=== PATIENT | male | born 1975 | race Caucasian/White ===

== ENCOUNTER 2017-03-07 04:31 | Emergency (ER) | payer SELFPAY ==
[2017-03-07 05:07] LABS: Basophils % (Auto) 0.9 % (0.0-1.8); Eosinophils % (Auto) 2.9 % (0.0-4.3); Hematocrit 35.1 % (35.5-45.6); Hemoglobin 11.6 gm/dl (11.8-15.2); Mean Corpuscular HGB Conc 33 % (32-34); Mean Corpuscular Volume 77 fl (84-94); Platelet Count 402 K/mm3 (140-440); Red Blood Count 4.55 M/mm3 (3.65-5.03); Red Cell Distribution Width 15.9 % (13.2-15.2); White Blood Count 6.1 K/mm3 (4.5-11.0)
[2017-03-07 05:13] LABS: Mean Corpuscular Hemoglobin 25 pg (28-32)
[2017-03-07 05:28] LABS: Anion Gap 19 mmol/L; BUN/Creatinine Ratio 11.11; Blood Urea Nitrogen 10 mg/dL (9-20); Calcium 8.9 mg/dL (8.4-10.2); Carbon Dioxide 24 mmol/L (22-30); Chloride 98.3 mmol/L (98-107); Glucose 110 mg/dL (75-100); Potassium 3.8 mmol/L (3.6-5.0); Sodium 137 mmol/L (137-145)
--- NOTE | 2017-03-07 10:00 | XRay Report ---
XRAY CHEST TWO VIEWS: 03/07/17 04:31:00 CLINICAL: Nonproductive cough. COMPARISON: None FINDINGS: Normal heart and pulmonary vasculature. The lungs are normally expanded and clear.Degenerative changes in the spine. IMPRESSION: No acute cardiopulmonary process.
--- NOTE | 2017-03-07 10:11 | Emergency Department Report ---
ED Rash HPI - HPI Chief Complaint: Upper Respiratory Infection Stated Complaint: DIFFULTY IN [facility], VIRAL INFECTION Time Seen by Provider: 03/07/17 09:20 Rash Symptoms: No Itching, No Facial Swelling, No Tongue/Oral Swelling, No Choking Sensation, No Wheezing/Dyspnea, No Peeling, No Blistering, No Fever, No Lightheaded, No Malaise, No Myalgias Severity: mild Other History: 41-year-old male presents with complaint of 2 weeks of slight rash to upper back up on his chest and abdomen and complaint of approximately 3- 4 days of intermittent sore throat. Patient also states that he has oral lesion on upper lip which is oral herpes which she has had several times in the past. Patient also states that he has had some body aches and swollen glands intermittently for possibly 2 months. Patient is requesting STD testing as he is concerned that he may have an STD. Patient also states he has had nonproductive cough for approximately 2 weeks. ED Review of Systems ROS: Stated complaint: [facility], VIRAL INFECTION Other details as noted in HPI Constitutional: denies: chills, fever Eyes: denies: eye pain, eye discharge, vision change ENT: as per HPI. 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 No distress. Alert and acting appropriately. HEENT: No Periorbital Edema, No Conjuctival Injection, No Chemosis, No Perioral Edema, No Tongue Edema, No Uvular Edema, No Compromised Airway, No Drooling Lungs: Yes Good Air Exchange (Normal Breath Sounds), No Wheezes, No Ronchi, No Stridor, No Cough, No Labored Respirations, No Retractions, No Use of Accessory Muscles, No Other Abnormal Lung Sounds Heart: Yes Regular, No Murmur Skin: Yes Maculopapular Rash (maculopapular rash on upper extremities chest and upper back. No involvement of palms or soles.), No Urticarial Rash, No Morbilliform rash, No Bulla(e), No Excoriations, No Weeping, No Tenderness, No Erythema, No Edema, No Encrustations, No Other Other: Positive: Abdomen Normal, Neurologic Normal, Musculoskeletal Normal ED Course Vital Signs 03/07/17 04:37 Temperature 98.2 F Pulse Rate 102 H Respiratory 18 Rate Blood Pressure 132/90 O2 Sat by Pulse 99 Oximetry ED Medical Decision Making - Lab Data Result diagrams: 03/07/17 04:50 03/07/17 04:50 - Medical Decision Making A/P: Nonspecific rash, oral herpes, sore throat 1-empiric treatment with acyclovir. Motrin PRN, throat lozenges 2-patient referred to health departments of [facility], [place], infectious disease clinics, [email or web address] primary care and health department, STI/STD health/testing center [email or web address]. I emphasized to patient that he should seek primary care follow-up and infectious disease follow-up and he stated he understood and will do so 3-advised patient to return to the ED for fevers chills nausea vomiting, headahce, chest pain, SOB. 4- case discussed with Dr. Deras before discharge 5- I advised patient to practice safe sex until he is tested for HIV hepatitis and other STDs in an outpatient setting. Patient is hemodynamically stable no cranial nerve deficits on clinical exam, vital signs within normal limits. Critical care attestation.: If time is entered above; I have spent that time in minutes in the direct care of this critically ill patient, excluding procedure time. ED Disposition Clinical Impression: Oral herpes, Rash and nonspecific skin eruption Disposition: TO HOME OR SELFCARE Is pt being admited?: No Does the pt Need Aspirin: No Condition: Stable Instructions: Safe Sex (ED), Oral Herpes Simplex Virus Infections (ED), Acute Rash (ED) Additional Instructions: [email or web address] Prescriptions: Acyclovir [Zovirax Cap] 200 mg PO 5XD #25 cap Benzocaine/Menthol [Cepacol Sore Throat Lozenge] 1 each MM Q4H PRN #1 box PRN Reason: Sore Throat Naproxen [Naprosyn TAB] 500 mg PO BID PRN #20 tablet PRN Reason: Pain Referrals: [facility] Depart [Outside] - 3-5 Days [facility] [Outside] - 3-5 Days FRANK NEWBY MD [Staff Physician] - 3-5 Days THU MONROE MD [Staff Physician] - 3-5 Days SIM MARK MD [Staff Physician] - 3-5 Days Forms: Work/School Release Form(ED) Time of Disposition: 10:10
[2017-03-07 10:23] VITALS: BP 112/55
== END 2017-03-07 11:00 | disposition home or self-care (01) ==
LOC: ED 04:31
DX: B00.9 Herpesviral infection, unspecified (principal); Z87.891 Personal history of nicotine dependence
CPT/HCPCS: 36415; 71020; 80048; 85025; 99283

== ENCOUNTER 2017-08-07 05:53 | Inpatient (IN) | payer OTHER ==
[2017-08-07] MEDS ORDERED: NACL 0.9% 1000 ML 1,000 ML IV ONE (06:13)
[2017-08-07] MEDS ORDERED: BABY ASPIRIN PO ONE (06:13)
[2017-08-07] MEDS ORDERED: HEPARIN 10,000 UNITS/10 ML IV ONE (06:25)
--- NOTE | 2017-08-07 06:27 | Emergency Department Report ---
ED Chest Pain HPI - General Stated Complaint: CHEST PAIN AND HANDS TINGLING Source: patient Mode of arrival: Ambulatory Limitations: No Limitations - History of Present Illness Initial Comments: 42-year-old male with no significant past medical history presents to the hospital with complaints of chest pain that started about 2 AM. Pain is located in the center of his chest, described as heartburn, moderate in intensity, associated with shortness of breath and sweating throughout the night. Pain has been waxing and waning and returned after arrival to the ED in ambulation to his car. Patient has been smoking cigarettes one to 2 times a day for last couple months. Positive family history of CAD. Denies personal cardiac or past medical history. - Related Data Previous Rx's Medication Instructions Recorded Last Taken Type Acyclovir [Zovirax Cap] 200 mg PO 5XD #25 cap 03/07/17 Unknown Rx Benzocaine/Menthol [Cepacol Sore 1 each MM Q4H PRN #1 box 03/07/17 Unknown Rx Throat Lozenge] Naproxen [Naprosyn TAB] 500 mg PO BID PRN #20 tablet 03/07/17 Unknown Rx Allergies Allergy/AdvReac Type Severity Reaction Status Date / Time No Known Allergies Allergy Verified 03/07/17 04:37 Heart Score - HEART Score History: Highly suspicious EKG: Significant ST-depression Age: < 45 Risk factors: 1-2 risk factors Troponin: < normal limit HEART Score: 5 ED Review of Systems ROS: Stated complaint: CHEST PAIN AND HANDS TINGLING Other details as noted in HPI Comment: All other systems reviewed and negative Other: Constitutional: No fevers chills or weight loss Eyes: No eye pain visual changes or discharge ENT: No ear pain or throat pain Neck: Denies pain Respiratory: Denies cough wheezing Cardiovascular: Denies chest pain, GI: Denies abdominal pain, nausea, vomiting, diarrhea : Denies dysuria Musculoskeletal: Denies back pain, joint swelling Skin: Denies rash, lesions, erythema Neurologic: Denies headache, numbness, weakness Psychiatric: Denies suicidal ideation, hallucinations ED Past Medical Hx - Past Medical History 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 - Social History Smoking Status: Former Smoker Substance Use Type: None - Medications Home Medications: Home Medications Medication Instructions Recorded Confirmed Last Taken Type Acyclovir [Zovirax Cap] 200 mg PO 5XD #25 cap 03/07/17 Unknown Rx Benzocaine/Menthol [Cepacol Sore 1 each MM Q4H PRN #1 box 03/07/17 Unknown Rx Throat Lozenge] Naproxen [Naprosyn TAB] 500 mg PO BID PRN #20 tablet 03/07/17 Unknown Rx ED Physical Exam - Other Other exam information: General: No limitations, patient is alert in no acute distress Head exam: Atraumatic, normocephalic Eyes exam: Normal appearance ENT: Moist mucous membrane, normal oropharynx Neck exam: Normal inspection, full range of motion, no meningismus nontender Respiratory exam: Clear to auscultation bilateral, no wheezes, rales, crackles Cardiovascular: Normal rate and rhythm, normal heart sounds, chest wall nontender Abdomen: Soft, nondistended, and nontender, with normal bowel sounds, no rebound, or guarding Extremity: Full range of motion normal inspection no deformity, no calf tenderness or edema Back: Normal Inspection, full range of motion, no tenderness Neurologic: Alert, oriented x3, cranial nerves intact, no motor or sensory deficit Psychiatric: normal affect, normal mood Skin: Warm, dry, intact ED Course Vital Signs 08/07/17 08/07/17 06:23 06:34 Temperature 97.9 F Pulse Rate 93 H 94 H Respiratory 18 Rate O2 Sat by Pulse 99 Oximetry - Consultations Consultation #1: 08/07/17 06:10 Case discussed with on-call medical collections specialist Dr. Gen Romero. On the way to hospital. technology lab teacher has been activated DESTINY score - Destiny Score Age > 65: (0) No Aspirin use within the Past 7 Days: (0) No 3 or more CAD Risk Factors: (0) No 2 or more Angina events in past 24 hrs: (0) No Known CAD with more than 50% Stenosis: (0) No Elevated Cardiac Markers: (0) No ST Deviation Greater than 0.5mm: (1) Yes DESTINY Score: 1 ED Medical Decision Making - Lab Data Result diagrams: 08/07/17 06:17 08/07/17 08:53 Lab Results 08/07/17 08/07/17 08/07/17 Range/Units 06:17 06:17 06:17 WBC 8.7 (4.5-11.0) K/mm3 RBC 4.13 (3.65-5.03) M/mm3 Hgb 9.5 L (11.8-15.2) gm/dl Hct 30.1 L (35.5-45.6) % MCV 73 L (84-94) fl MCH 23 L (28-32) pg MCHC 31 L (32-34) % RDW 19.4 H (13.2-15.2) % Plt Count 417 (140-440) K/mm3 Lymph % (Auto) 22.6 (13.4-35.0) % [place] % (Auto) 6.5 (0.0-7.3) % Eos % (Auto) 2.7 (0.0-4.3) % Baso % (Auto) 0.6 (0.0-1.8) % Lymph # 2.0 (1.2-5.4) K/mm3 [place] # 0.6 (0.0-0.8) K/mm3 Eos # 0.2 (0.0-0.4) K/mm3 Baso # 0.1 (0.0-0.1) K/mm3 Seg Neutrophils % 67.6 (40.0-70.0) % Seg Neutrophils # 5.9 (1.8-7.7) K/mm3 PT 11.8 L (12.2-14.9) Sec. INR 0.83 L (0.87-1.13) APTT 27.1 (24.2-36.6) Sec. Activated Clotting Time (74-137) Sodium (137-145) mmol/L Potassium (3.6-5.0) mmol/L Chloride (98-107) mmol/L Carbon Dioxide (22-30) mmol/L Anion Gap mmol/L BUN (9-20) mg/dL Creatinine (0.8-1.5) mg/dL Estimated GFR ml/min BUN/Creatinine Ratio % Glucose (75-100) mg/dL Calcium (8.4-10.2) mg/dL Total Bilirubin (0.1-1.2) mg/dL AST (5-40) units/L ALT (7-56) units/L Alkaline Phosphatase (35-129) units/L Total Creatine Kinase 467 H (55-170) units/L CK-MB (CK-2) 4.1 H (0.0-4.0) ng/mL CK-MB (CK-2) Rel Index 0.8 (0-4) Troponin T < 0.010 (0.00-0.029) ng/mL Total Protein (6.3-8.2) g/dL Albumin (3.9-5) g/dL Albumin/Globulin Ratio % Blood Type Antibody Screen 08/07/17 08/07/17 08/07/17 Range/Units 06:17 06:17 07:16 WBC (4.5-11.0) K/mm3 RBC (3.65-5.03) M/mm3 Hgb (11.8-15.2) gm/dl Hct (35.5-45.6) % MCV (84-94) fl MCH (28-32) pg MCHC (32-34) % RDW (13.2-15.2) % Plt Count (140-440) K/mm3 Lymph % (Auto) (13.4-35.0) % [place] % (Auto) (0.0-7.3) % Eos % (Auto) (0.0-4.3) % Baso % (Auto) (0.0-1.8) % Lymph # (1.2-5.4) K/mm3 [place] # (0.0-0.8) K/mm3 Eos # (0.0-0.4) K/mm3 Baso # (0.0-0.1) K/mm3 Seg Neutrophils % (40.0-70.0) % Seg Neutrophils # (1.8-7.7) K/mm3 PT (12.2-14.9) Sec. INR (0.87-1.13) APTT (24.2-36.6) Sec. Activated Clotting Time 142 H (74-137) Sodium 136 L (137-145) mmol/L Potassium 4.5 (3.6-5.0) mmol/L Chloride 98.4 (98-107) mmol/L Carbon Dioxide 23 (22-30) mmol/L Anion Gap 19 mmol/L BUN 12 (9-20) mg/dL Creatinine 1.0 (0.8-1.5) mg/dL Estimated GFR > 60 ml/min BUN/Creatinine Ratio 12 % Glucose 110 H (75-100) mg/dL Calcium 8.9 (8.4-10.2) mg/dL Total Bilirubin 0.40 (0.1-1.2) mg/dL AST 26 (5-40) units/L ALT 22 (7-56) units/L Alkaline Phosphatase 98 (35-129) units/L Total Creatine Kinase (55-170) units/L CK-MB (CK-2) (0.0-4.0) ng/mL CK-MB (CK-2) Rel Index (0-4) Troponin T (0.00-0.029) ng/mL Total Protein 7.6 (6.3-8.2) g/dL Albumin 4.1 (3.9-5) g/dL Albumin/Globulin Ratio 1.2 % Blood Type O POSITIVE Antibody Screen Negative - EKG Data -: EKG Interpreted by Me EKG shows normal: sinus rhythm, axis (69), QRS complexes (68), ST-T waves (inf stemi, lat st elevation) Rate: normal - EKG Data When compared to previous EKG there are: previous EKG unavailable - Radiology Data Radiology results: report reviewed (cxr: naf) - Medical Decision Making ST elevation IA Aspirin given Heparin bolus with drip initiated morphine Zofran when necessary pain and nausea Patient transferred to liaison inspection laboratory assistant and to be admitted by hospitalist Dr Hicks hospitalist informed at 7:08 for admission - Differential Diagnosis IA, unstable angina, PE, dissection, atypical chest, GERD Critical Care Time: Yes Critical care time in (mins) excluding proc time.: 15 Critical care attestation.: If time is entered above; I have spent that time in minutes in the direct care of this critically ill patient, excluding procedure time. ED Disposition Clinical Impression: STEMI (ST elevation myocardial infarction) Disposition: DC-09 OP ADMIT IP TO THIS HOSP Is pt being admited?: Yes Condition: Stable Time of Disposition: 06:29 (Dr Gen Romero/melissa)
[2017-08-07 06:30] LABS: Basophils # (Auto) 0.1 K/mm3 (0.0-0.1); Basophils % (Auto) 0.6 % (0.0-1.8); Eosinophils # (Auto) 0.2 K/mm3 (0.0-0.4); Eosinophils % (Auto) 2.7 % (0.0-4.3); Hematocrit 30.1 % (35.5-45.6); Hemoglobin 9.5 gm/dl (11.8-15.2); Lymphocytes % (Auto) 22.6 % (13.4-35.0); Mean Corpuscular HGB Conc 31 % (32-34); Mean Corpuscular Volume 73 fl (84-94); Monocytes # (Auto) 0.6 K/mm3 (0.0-0.8); Monocytes % (Auto) 6.5 % (0.0-7.3); Platelet Count 417 K/mm3 (140-440); Red Blood Count 4.13 M/mm3 (3.65-5.03); Red Cell Distribution Width 19.4 % (13.2-15.2)
[2017-08-07] MEDS ORDERED: ZOFRAN IV PRN (06:36)
[2017-08-07] MEDS ORDERED: MORPHINE IV PRN (06:36)
[2017-08-07 06:42] LABS: Mean Corpuscular Hemoglobin 23 pg (28-32)
--- NOTE | 2017-08-07 06:46 | XRay Report ---
FINAL REPORT PROCEDURE: XR CHEST 1V AP TECHNIQUE: Chest radiograph anteroposterior view. CPT 44834 HISTORY: chest pain COMPARISON: No prior studies are available for comparison. FINDINGS: Heart: Normal. Mediastinum/Vessels: Normal. Lungs/Pleural space: There is suboptimal inspiration. There are no infiltrates, effusions or pneumothoraces.. Bony thorax: No acute osseous abnormality. Life support devices: None. IMPRESSION: Normal heart and lungs..
[2017-08-07 06:47] LABS: Creatine Kinase MB 4.1 ng/mL (0.0-4.0); INR 0.83 (0.87-1.13)
[2017-08-07 06:48] LABS: Partial Thromboplastin Time 27.1 Sec. (24.2-36.6)
[2017-08-07 06:49] LABS: Alanine Aminotransferase 22 units/L (7-56); Albumin 4.1 g/dL (3.9-5); BUN/Creatinine Ratio 12; Blood Urea Nitrogen 12 mg/dL (9-20); Calcium 8.9 mg/dL (8.4-10.2); Hemolysis Index 7
[2017-08-07] MEDS ORDERED: HEPARIN/NS 5000 UNIT/500ML(CATH LAB) 0 ML IR ONE (06:49)
[2017-08-07] MEDS ORDERED: VERSED ONE (06:50)
[2017-08-07] MEDS ORDERED: XYLOCAINE 2% INFILTRATI ONE ×2 (06:50→06:58)
[2017-08-07] MEDS ORDERED: SUBLIMAZE ONE (06:52)
[2017-08-07] MEDS ORDERED: HEPARIN 10,000 UNITS/10 ML ONE ×2 (06:57→07:37)
[2017-08-07] MEDS ORDERED: HEPARIN/NS 5000 UNIT/500ML(CATH LAB) 1,000 ML IR ONE (06:57)
[2017-08-07] MEDS ORDERED: NITROGLYCERIN SYRINGE 3 ML ONE (06:58)
[2017-08-07] MEDS ORDERED: HEPARIN/ 0.45% NACL-25,000 UNIT/500 ML 25,000 UNIT/500 ML BAG IV SCH (07:00)
--- NOTE | 2017-08-07 07:20 | History and Physical Report ---
History of Present Illness Date of examination: 08/07/17 Date of admission: 08/07/17 Chief complaint: Left-sided chest pain History of present illness: 42-year-old male patientwith significant past medical history presented to the emergency room with left-sided chest pain since last night. Chest pain pleuritic squeezing type symptoms and heartburn greatest between 6-7/ 10 associated with shortness of breath and diaphoresis Patient has history of chronic tobacco use and family history significant for coronary artery disease Past History Past Surgical History: No surgical history Social history: smoking ( ex-smoker) Family history: CAD, hypertension Medications and Allergies Allergies Allergy/AdvReac Type Severity Reaction Status Date / Time No Known Allergies Allergy Verified 03/07/17 04:37 Home Medications Medication Instructions Recorded Confirmed Last Taken Type Acyclovir [Zovirax Cap] 200 mg PO 5XD #25 cap 03/07/17 Unknown Rx Benzocaine/Menthol [Cepacol Sore 1 each MM Q4H PRN #1 box 03/07/17 Unknown Rx Throat Lozenge] Naproxen [Naprosyn TAB] 500 mg PO BID PRN #20 tablet 03/07/17 Unknown Rx Active Meds: Active Medications Sodium Chloride (Nacl 0.9% 1000 Ml) 1,000 mls @ 42 mls/hr IV ONCE ONE Stop: 08/08/17 06:01 Last Admin: 08/07/17 06:33 Dose: 42 mls/hr Heparin Sodium/Sodium Chloride (Heparin/ 0.45% Nacl-25,000 Unit/500 Ml) 25,000 unit in 500 mls @ 18 mls/hr IV TITRATE LOURDES; Protocol Last Admin: 08/07/17 06:34 Dose: 900 units/hr, 18 mls/hr Morphine Sulfate (Morphine) 4 mg IV Q4H PRN PRN Reason: Pain, Moderate (4-6) Ondansetron HCl (Zofran) 4 mg IV PRN PRN PRN Reason: Nausea Review of Systems Constitutional: no weight loss, no weight gain, no anorexia, no fatigue Ears, nose, mouth and throat: no nasal congestion, no nasal discharge Cardiovascular: chest pain, shortness of breath, no orthopnea, no palpitations, no rapid/irregular heart beat Respiratory: no excessive sputum, no hemoptysis Gastrointestinal: nausea, no vomiting, no diarrhea Genitourinary Male: no dysuria, no hematuria Musculoskeletal: no myalgias, no arthritis Integumentary: rash, lesions Neurological: no weakness, no parathesias Psychiatric: no anxiety, no depression Endocrine: no cold intolerance, no heat intolerance, no polydipsia, no polyuria Hematologic/Lymphatic: no easy bruising, no easy bleeding Allergic/Immunologic: no urticaria, no allergic rhinitis Exam - Constitutional Vitals: Temp Pulse Resp BP Pulse Ox 97.9 F 94 H 18 99 08/07/17 06:23 08/07/17 06:34 08/07/17 06:23 08/07/17 06:23 General appearance: Present: no acute distress, well-nourished - EENT Eyes: Present: PERRL, EOM intact - Neck Neck: Present: supple, normal ROM - Respiratory Respiratory effort: normal Respiratory: bilateral: diminished, negative: rales, rhonchi, wheezing - Cardiovascular Rhythm: regular Heart Sounds: Present: S1 & S2 - Extremities Extremities: no ischemia, No edema - Abdominal General gastrointestinal: Present: soft, non-tender, non-distended, normal bowel sounds - Integumentary Integumentary: Present: clear, warm - Musculoskeletal Musculoskeletal: strength equal bilaterally, generalized weakness - Psychiatric Psychiatric: appropriate mood/affect, cooperative - Neurologic Neurologic: CNII-XII intact, moves all extremities Results - Labs CBC & Chem 7: 08/08/17 03:48 08/08/17 03:48 Labs: Abnormal lab results 08/07/17 08/07/17 08/07/17 Range/Units 06:17 06:17 06:17 Hgb 9.5 L (11.8-15.2) gm/dl Hct 30.1 L (35.5-45.6) % MCV 73 L (84-94) fl MCH 23 L (28-32) pg MCHC 31 L (32-34) % RDW 19.4 H (13.2-15.2) % PT 11.8 L (12.2-14.9) Sec. INR 0.83 L (0.87-1.13) Sodium (137-145) mmol/L Glucose (75-100) mg/dL Total Creatine Kinase 467 H (55-170) units/L CK-MB (CK-2) 4.1 H (0.0-4.0) ng/mL 08/07/17 Range/Units 06:17 Hgb (11.8-15.2) gm/dl Hct (35.5-45.6) % MCV (84-94) fl MCH (28-32) pg MCHC (32-34) % RDW (13.2-15.2) % PT (12.2-14.9) Sec. INR (0.87-1.13) Sodium 136 L (137-145) mmol/L Glucose 110 H (75-100) mg/dL Total Creatine Kinase (55-170) units/L CK-MB (CK-2) (0.0-4.0) ng/mL Assessment and Plan --Acute ST elevation [place]; cardiology evaluated the patient stat heart cath performed, underwent PCI of proximal circumflex with bare metal stent on aspirin and Plavix admitted to ICU --Hematuria; unknown etiology, IV fluids, monitor H&H and transfuse as needed If no improvement consult urology . --Anemia; we'll check iron profile, closely monitor H&H and transfuse as needed --Mild hyponatremia; closely monitor sodium levels replacement therapy as needed , --Family history of premature coronary artery disease, --DVT prophylaxis; patient is on heparin drip Closely monitor the patient and adjust management as needed Cardiology evaluation and recommendations, noted and appreciated Cardiac Rehabilitation upon discharge Plan of care discussed with the patient, multiple family members at the bedside All questions answered. Critical care time 35 minutes -
[2017-08-07] MEDS ORDERED: PLAVIX ONE (07:25)
[2017-08-07] MEDS ORDERED: ALUM-MAG HYDROX-SIMETH 200-200-20MG/5ML ONE (07:46)
--- NOTE | 2017-08-07 07:49 | Consultation ---
History of Present Illness Consult date: 08/07/17 Consult reason: cardiac arrest, chest pain History of present illness: 42-year-old male with no significant past medical history presents to the Hospital with complaints of chest pain that started about 2 AM. Reports pain in the center of the chest, described as heartburn, moderate in intensity, associated with shortness of breath and sweating throughout the night. Pain has been waxing and waning and returned after arrival to the ED in ambulation to his car. Patient has been smoking cigarettes one to 2 times a day for last couple months. Positive family history of CAD. Denies personal cardiac or past medical history. Patient is a history of leukemia apparently which is under remission. However for the past few days to weeks he's been having significant hematuria. Pupils at this chest pain has been on and off for the past few days Patient was noted to have acute inferior ST elevation [place]. He was taken emergently to the cardiac cath rn and was noted to have thrombotic significant stenosis of the circumflex artery. He underwent successful percutaneous intervention with a bare metal stent. Patient is being admitted post PCI. Past History Past Medical History: other (leukemia, hematuria) Social history: smoking Family history: CAD (all his family members have had significant coronary artery disease) Medications and Allergies Allergies Allergy/AdvReac Type Severity Reaction Status Date / Time No Known Allergies Allergy Verified 03/07/17 04:37 Home Medications Medication Instructions Recorded Confirmed Last Taken Type Acyclovir [Zovirax Cap] 200 mg PO 5XD #25 cap 03/07/17 Unknown Rx Benzocaine/Menthol [Cepacol Sore 1 each MM Q4H PRN #1 box 03/07/17 Unknown Rx Throat Lozenge] Naproxen [Naprosyn TAB] 500 mg PO BID PRN #20 tablet 03/07/17 Unknown Rx Active Meds: Active Medications Alprazolam (Xanax) 0.25 mg PO Q8H PRN PRN Reason: Anxiety Aspirin (Ecotrin) 325 mg PO QDAY LOURDES Atorvastatin Calcium (Lipitor) 80 mg PO QHS LOURDES Carvedilol (Coreg) 3.125 mg PO BID LOURDES Clopidogrel Bisulfate (Plavix) 75 mg PO QDAY LOURDES Famotidine (Pepcid) 20 mg IV BID LOURDES Sodium Chloride (Nacl 0.9% 1000 Ml) 1,000 mls @ 42 mls/hr IV ONCE ONE Stop: 08/08/17 06:01 Last Admin: 08/07/17 06:33 Dose: 42 mls/hr Heparin Sodium/Sodium Chloride (Heparin/ 0.45% Nacl-25,000 Unit/500 Ml) 25,000 unit in 500 mls @ 18 mls/hr IV TITRATE LOURDES; Protocol Last Admin: 08/07/17 06:34 Dose: 900 units/hr, 18 mls/hr Sodium Chloride (Nacl 0.9% 1000 Ml) 1,000 mls @ 125 mls/hr IV DIRECT LOURDES Morphine Sulfate (Morphine) 4 mg IV Q4H PRN PRN Reason: Pain, Moderate (4-6) Morphine Sulfate (Morphine) 2 mg IV Q4H PRN PRN Reason: Pain, Moderate (4-6) Ondansetron HCl (Zofran) 4 mg IV PRN PRN PRN Reason: Nausea Pantoprazole Sodium (Protonix) 40 mg PO QDAY LOURDES Review of Systems All systems: negative (as mentioned above.) Physical Examination Vital Signs Temp Pulse Resp Pulse Ox 97.9 F 93 H 18 99 08/07/17 06:23 08/07/17 06:23 08/07/17 06:23 08/07/17 06:23 Narrative exam: Physical examination Vitals reviewed GEN: No acute distress noted HEENT: Carotids 2+ NECK: Supple CVS: S1 and S2 heard no significant murmur or gallop noted LUNGS/CHEST: Normal auscultation ABD: Soft nontender Extremities: No edema noted normal color NEURO: Alert moves all all 4 extremities PSY: Stable Results 08/07/17 06:17 08/07/17 06:17 Cardiac Enzymes 08/07/17 08/07/17 Range/Units 06:17 06:17 AST 26 (5-40) units/L CK-MB (CK-2) 4.1 H (0.0-4.0) ng/mL Coagulation 08/07/17 Range/Units 06:17 PT 11.8 L (12.2-14.9) Sec. INR 0.83 L (0.87-1.13) APTT 27.1 (24.2-36.6) Sec. CBC 08/07/17 Range/Units 06:17 WBC 8.7 (4.5-11.0) K/mm3 RBC 4.13 (3.65-5.03) M/mm3 Hgb 9.5 L (11.8-15.2) gm/dl Hct 30.1 L (35.5-45.6) % Plt Count 417 (140-440) K/mm3 Lymph # 2.0 (1.2-5.4) K/mm3 [place] # 0.6 (0.0-0.8) K/mm3 Eos # 0.2 (0.0-0.4) K/mm3 Baso # 0.1 (0.0-0.1) K/mm3 Comprehensive Metabolic Panel 08/07/17 Range/Units 06:17 Sodium 136 L (137-145) mmol/L Potassium 4.5 (3.6-5.0) mmol/L Chloride 98.4 (98-107) mmol/L Carbon Dioxide 23 (22-30) mmol/L BUN 12 (9-20) mg/dL Creatinine 1.0 (0.8-1.5) mg/dL Glucose 110 H (75-100) mg/dL Calcium 8.9 (8.4-10.2) mg/dL AST 26 (5-40) units/L ALT 22 (7-56) units/L Alkaline Phosphatase 98 (35-129) units/L Total Protein 7.6 (6.3-8.2) g/dL Albumin 4.1 (3.9-5) g/dL EKG interpretations - Telemetry EKG Rhythm: Sinus Rhythm (acute inferior ST elevation DC with reciprocal anterior changes) Assessment and Plan Impression 1. Acute inferior ST elevation DC 2. Successful pocket it is intervention of the circumflex artery in the setting of an acute inferior ST elevation DC 3. Hematuria 4. Anemia 5. History of leukemia in remission 6. Questionable rashes over the past few days 7. History of tobacco abuse 8. Family history of premature cardiac artery disease Plan Dictated therapy for 4 weeks preferably more Routine underwent pharmacotherapy post PCI including beta blockers and high intensity statins Hematuria and anemia workup Cardiac rehabilitation as an outpatient
[2017-08-07] MEDS ORDERED: NACL 0.9% 1000 ML 1,000 ML IV SCH (08:00)
--- NOTE | 2017-08-07 08:20 | Cardiac Catherization Report ---
PROCEDURE PERFORMED: 1. Selective left and right coronary angiogram. 2. Successful percutaneous intervention of the proximal circumflex. 3. Limited right femoral angiogram. 4. Successful deployment of Angio-Seal vascular closure device. COPIER TECHNICIAN: Alessandro Romero M.D. INDICATION: Acute inferior ST elevation [place]. PROCEDURE IN DETAIL: 1. The patient was prepped and draped in a sterile fashion after informed consent. 2. The right groin was anesthetized using local Lidocaine infiltration. 3. The right femoral artery was entered using the Seldinger technique, followed by the placement of a 6-Danish sheath. 4. Selective left and right coronary angiography was performed using 6-Danish Shelbie catheters. Angiograms were done in multiple projections. 5. Selective left ventricular angiography was done using a 6-Danish pigtail catheter. Left ventricular angiography was performed in the right anterior oblique projection. 6. The catheters were withdrawn, the sheath removed, and hemostasis was achieved. 7. The patient was transferred to the post cardiac catheterization unit in stable condition. There were no complications, equipment malfunction, or technical difficulties. FINDINGS: 1. Hemodynamics: AO 141/97, LV 141/29, LVEDP is 29. 2. Left ventriculogram was suboptimal appears to be mildly reduced LV systolic function, EF 40-45%. ANGIOGRAM DETAILS: 1. Left main is angiographically normal. 2. LAD is a medium caliber vessel. There is a 50-60% mid stenosis. The diagonal 1 is diffusely diseased. 3. The circumflex is a codominant large caliber vessel. Thrombotic 80% stenosis is noted proximally. 4. The RCA is a small to medium caliber codominant vessel, diffuse stenosis noted with no significant obstructive lesion. IMPRESSION: 1. Critical coronary artery disease including 80% thrombotic occlusion of the proximal circumflex. 2. Moderate diffuse disease of the LAD and the RCA. 3. Borderline LV systolic function, EF 40-45%. PLAN: Proceed with PCI of the circumflex. PERCUTANEOUS INTERVENTION DETAILS: Intravenous heparin was used to maintain therapeutic ACT. An XB 3.5 guide catheter was used to engage the left main coronary artery. A BMW wire was used as a standard guidewire. After initial predilatation, a 3.0 X 15 mm bare metal stent was deployed across the stenosis with excellent results. There was complete resolution of thrombotic stenosis with DESTINY 3 flow. The patient was chest pain free. Angiogram repeated and no dissection, no thrombosis or residual stenosis noted. The guide was removed over the wire. Limited right femoral angiogram showed sheath above bifurcation and an Angio-Seal was used for vascular closure. Complete hemostasis was obtained. The patient was given 600 mg of Plavix. IMPRESSION: 1. Status post successful percutaneous intervention of the thrombotic circumflex with the deployment of a 3.0 X 15 bare metal stent. 2. A bare metal stent was deployed as the patient has been having hematuria, was noted to be anemic and has a history of leukemia. This will limit his dual antiplatelet therapy for only 4 weeks. PLAN: 1. Dual antiplatelet therapy for 4 weeks, preferably more. 2. Routine adjuvant pharmacotherapy post PCI/FL. 3. Routine Angio-Seal groin care. 4. Cardiac rehabilitation as an outpatient. JOB# [id number] RR/NTS
[2017-08-07 09:25] LABS: Creatine Kinase MB 13.9 ng/mL (0.0-4.0)
[2017-08-07 09:26] LABS: Chol/HDL Ratio 2.36 %
[2017-08-07] MEDS: MORPHINE IV PRN ×2 (09:26→22:53)
[2017-08-07 09:59] LABS: BUN/Creatinine Ratio 12; Blood Urea Nitrogen 11 mg/dL (9-20); Calcium 8.4 mg/dL (8.4-10.2); Hemolysis Index 2
[2017-08-07] MEDS ORDERED: PEPCID IV SCH (10:00)
[2017-08-07] MEDS: COREG PO SCH ×2 (12:16→22:11)
[2017-08-07] MEDS: ECOTRIN PO SCH (12:16)
[2017-08-07] MEDS: PROTONIX PO SCH (12:17)
[2017-08-07] MEDS: XANAX PO PRN (12:17)
[2017-08-07 13:56] LABS: Creatine Kinase MB 55.5 ng/mL (0.0-4.0)
[2017-08-07] MEDS ORDERED: Fluarix Quad 2017-2018(36 MOS+ IM ONE (17:15)
[2017-08-07] MEDS ORDERED: AMBIEN PO PRN (17:26)
[2017-08-08 04:14] LABS: Basophils # (Auto) 0.1 K/mm3 (0.0-0.1); Basophils % (Auto) 0.8 % (0.0-1.8); Eosinophils # (Auto) 0.2 K/mm3 (0.0-0.4); Eosinophils % (Auto) 2.7 % (0.0-4.3); Hemoglobin 8.6 gm/dl (11.8-15.2); Lymphocytes # (Auto) 1.5 K/mm3 (1.2-5.4); Mean Corpuscular HGB Conc 32 % (32-34); Mean Corpuscular Volume 72 fl (84-94); Monocytes # (Auto) 0.5 K/mm3 (0.0-0.8); Monocytes % (Auto) 7.3 % (0.0-7.3); Platelet Count 363 K/mm3 (140-440); Red Blood Count 3.75 M/mm3 (3.65-5.03); Red Cell Distribution Width 19.3 % (13.2-15.2)
[2017-08-08 04:37] LABS: Creatine Kinase MB 39.9 ng/mL (0.0-4.0)
[2017-08-08 04:38] LABS: BUN/Creatinine Ratio 12; Blood Urea Nitrogen 11 mg/dL (9-20); Calcium 8.3 mg/dL (8.4-10.2); Hemolysis Index 0
[2017-08-08 04:40] LABS: Mean Corpuscular Hemoglobin 23 pg (28-32)
--- NOTE | 2017-08-08 09:04 | Progress Note ---
Assessment and Plan - Patient Problems (1) STEMI (ST elevation myocardial infarction) Current Visit: Yes Status: Acute (2) Anemia Current Visit: Yes Status: Acute Subjective Date of service: 08/08/17 Interval history: NO CV C\O Objective Vital Signs Temp Pulse Pulse Resp BP Pulse Ox 08/08/17 04:18 98.4 F 08/08/17 04:00 100 H 16 95 08/08/17 02:00 97 H 16 08/08/17 01:23 100.3 F H 08/08/17 01:02 98.4 F 08/08/17 00:00 97 H 16 95 08/07/17 22:11 110 H 107/51 08/07/17 22:00 78 10 L 20 08/07/17 20:06 96 08/07/17 20:00 98 H 20 98 08/07/17 16:36 108 H 19 08/07/17 16:00 98.5 F 17 08/07/17 12:16 97 H 129/90 08/07/17 12:00 97.8 F 08/07/17 10:00 115 H - Physical Examination General: No Apparent Distress HEENT: Positive: PERRL Neck: Positive: neck supple Cardiac: Positive: Regular Rhythm Lungs: Positive: clear to auscultation Abdomen: Positive: Unremarkable Extremities: Present: normal - Labs and Meds Cardiac Enzymes 08/07/17 08/07/17 08/08/17 Range/Units 08:53 13:07 03:48 CK-MB (CK-2) 13.9 H 55.5 H 39.9 H (0.0-4.0) ng/mL Lipids 08/07/17 Range/Units 08:53 Triglycerides 69 (2-149) mg/dL Cholesterol 173 (50-199) mg/dL HDL Cholesterol 73 H (40-59) mg/dL Cholesterol/HDL Ratio 2.36 % CBC 08/08/17 Range/Units 03:48 WBC 6.6 (4.5-11.0) K/mm3 RBC 3.75 (3.65-5.03) M/mm3 Hgb 8.6 L (11.8-15.2) gm/dl Hct 27.0 L (35.5-45.6) % Plt Count 363 (140-440) K/mm3 Lymph # 1.5 (1.2-5.4) K/mm3 [place] # 0.5 (0.0-0.8) K/mm3 Eos # 0.2 (0.0-0.4) K/mm3 Baso # 0.1 (0.0-0.1) K/mm3 Comprehensive Metabolic Panel 08/07/17 08/08/17 Range/Units 08:53 03:48 Sodium 134 L 135 L (137-145) mmol/L Potassium 5.1 H 4.4 (3.6-5.0) mmol/L Chloride 100.6 99.1 (98-107) mmol/L Carbon Dioxide 22 21 L (22-30) mmol/L BUN 11 11 (9-20) mg/dL Creatinine 0.9 0.9 (0.8-1.5) mg/dL Glucose 100 120 H (75-100) mg/dL Calcium 8.4 8.3 L (8.4-10.2) mg/dL
[2017-08-08] MEDS: PROTONIX PO SCH (09:27)
[2017-08-08] MEDS: COREG PO SCH ×2 (09:27→21:55)
[2017-08-08] MEDS: PLAVIX PO SCH (09:28)
[2017-08-08] MEDS: ECOTRIN PO SCH (09:28)
--- NOTE | 2017-08-08 09:35 | Progress Note ---
Assessment and Plan Assessment and plan: --Acute ST elevation [place]; status post PCI to proximal circumflex Continue aspirin and Plavix and other cardiac medications, cardiology following --Hematuria; unknown etiology, IV fluids, urine analysis, urine cultures Mild drop in H&H , renal ultrasound, urology consult if needed --Rash ; patient reports that he has finished a course of acyclovir recently follow RPR, and FTA-ABS tests, Consult ID, as needed --Anemia; mild drop in H&H , stool for occult blood ,we'll check iron profile, and transfuse as needed --Mild hyponatremia; improved --Dyslipidemia; continue statin, low cholesterol diet --Family history of premature coronary artery disease, --DVT prophylaxis; Lovenox The patient is stable, if agreeable to cardiology may be transferred out of ICU Plan of care discussed with the patient and his nurse Critical care time 32 minutes History Interval history: Patient seen and examined medical records reviewed Patient feels slightly better, No new events reported by the nursing staff Patient denies chest pain or shortness of breath Reports that he is feeling bored and wasting time lying in the bed Alert awake oriented 3 not in acute distress Vital signs reviewed Hospitalist Physical - Constitutional Vitals: Temp Pulse Resp BP Pulse Ox 98.1 F 101 H 16 108/62 95 08/08/17 08:00 08/08/17 09:27 08/08/17 04:00 08/08/17 09:27 08/08/17 04:00 General appearance: Present: no acute distress, well-nourished - EENT Eyes: Present: PERRL, EOM intact - Neck Neck: Present: supple, normal ROM - Respiratory Respiratory effort: normal Respiratory: negative: rales, rhonchi, wheezing - Cardiovascular Rhythm: regular Heart Sounds: Present: S1 & S2 - Extremities Extremities: no ischemia, No edema - Abdominal General gastrointestinal: soft, non-tender, non-distended, normal bowel sounds - Integumentary Integumentary: Present: clear, warm, rash - Psychiatric Psychiatric: appropriate mood/affect, cooperative - Neurologic Neurologic: CNII-XII intact, moves all extremities Results - Labs CBC & Chem 7: 08/09/17 08:13 08/09/17 08:13 Labs: Laboratory Last Values WBC 6.6 K/mm3 (4.5-11.0) 08/08/17 03:48 RBC 3.75 M/mm3 (3.65-5.03) 08/08/17 03:48 Hgb 8.6 gm/dl (11.8-15.2) L 08/08/17 03:48 Hct 27.0 % (35.5-45.6) L 08/08/17 03:48 MCV 72 fl (84-94) L 08/08/17 03:48 MCH 23 pg (28-32) L 08/08/17 03:48 MCHC 32 % (32-34) 08/08/17 03:48 RDW 19.3 % (13.2-15.2) H 08/08/17 03:48 Plt Count 363 K/mm3 (140-440) 08/08/17 03:48 Lymph % (Auto) 22.0 % (13.4-35.0) 08/08/17 03:48 [place] % (Auto) 7.3 % (0.0-7.3) 08/08/17 03:48 Eos % (Auto) 2.7 % (0.0-4.3) 08/08/17 03:48 Baso % (Auto) 0.8 % (0.0-1.8) 08/08/17 03:48 Lymph # 1.5 K/mm3 (1.2-5.4) 08/08/17 03:48 [place] # 0.5 K/mm3 (0.0-0.8) 08/08/17 03:48 Eos # 0.2 K/mm3 (0.0-0.4) 08/08/17 03:48 Baso # 0.1 K/mm3 (0.0-0.1) 08/08/17 03:48 Seg Neutrophils % 67.2 % (40.0-70.0) 08/08/17 03:48 Seg Neutrophils # 4.5 K/mm3 (1.8-7.7) 08/08/17 03:48 PT 11.8 Sec. (12.2-14.9) L 08/07/17 06:17 INR 0.83 (0.87-1.13) L 08/07/17 06:17 APTT 27.1 Sec. (24.2-36.6) 08/07/17 06:17 Activated Clotting Time 191 (74-137) H 08/07/17 07:30 Sodium 135 mmol/L (137-145) L 08/08/17 03:48 Potassium 4.4 mmol/L (3.6-5.0) 08/08/17 03:48 Chloride 99.1 mmol/L (98-107) 08/08/17 03:48 Carbon Dioxide 21 mmol/L (22-30) L 08/08/17 03:48 Anion Gap 19 mmol/L 08/08/17 03:48 BUN 11 mg/dL (9-20) 08/08/17 03:48 Creatinine 0.9 mg/dL (0.8-1.5) 08/08/17 03:48 Estimated GFR > 60 ml/min 08/08/17 03:48 BUN/Creatinine Ratio 12 % 08/08/17 03:48 Glucose 120 mg/dL (75-100) H 08/08/17 03:48 Calcium 8.3 mg/dL (8.4-10.2) L 08/08/17 03:48 Magnesium 2.10 mg/dL (1.7-2.3) 08/08/17 03:48 Total Bilirubin 0.40 mg/dL (0.1-1.2) 08/07/17 06:17 AST 26 units/L (5-40) 08/07/17 06:17 ALT 22 units/L (7-56) 08/07/17 06:17 Alkaline Phosphatase 98 units/L (35-129) 08/07/17 06:17 Total Creatine Kinase 687 units/L (55-170) H 08/08/17 03:48 CK-MB (CK-2) 39.9 ng/mL (0.0-4.0) H 08/08/17 03:48 CK-MB (CK-2) Rel Index 5.8 (0-4) H 08/08/17 03:48 Troponin T 0.959 ng/mL (0.00-0.029) H* D 08/08/17 03:48 Total Protein 7.6 g/dL (6.3-8.2) 08/07/17 06:17 Albumin 4.1 g/dL (3.9-5) 08/07/17 06:17 Albumin/Globulin Ratio 1.2 % 08/07/17 06:17 Triglycerides 69 mg/dL (2-149) 08/07/17 08:53 Cholesterol 173 mg/dL (50-199) 08/07/17 08:53 LDL Cholesterol Direct 87 mg/dL (50-130) 08/07/17 08:53 HDL Cholesterol 73 mg/dL (40-59) H 08/07/17 08:53 Cholesterol/HDL Ratio 2.36 % 08/07/17 08:53 HIV 1&2 Antibody Rapid Non react (Non React) 08/07/17 13:07 HIV P24 Antigen Non react (Non React) 08/07/17 13:07 Blood Type O POSITIVE 08/07/17 06:17 Antibody Screen Negative 08/07/17 06:17
[2017-08-08 10:17] LABS: % Iron Saturation 2.98 %
[2017-08-08] MEDS: XANAX PO PRN (21:55)
[2017-08-08 23:54] LABS: Bilirubin,Urine NEG (Negative); Blood,Urine NEG (Negative); Color,Urine Straw (Yellow); Mucus,Urine 3+ /HPF; Protein,Urine <15 mg/dL mg/dL (Negative); Urobilinogen,Urine < 2.0 mg/dL (<2.0)
[2017-08-09 08:39] LABS: Basophils # (Auto) 0.1 K/mm3 (0.0-0.1); Basophils % (Auto) 0.8 % (0.0-1.8); Eosinophils # (Auto) 0.2 K/mm3 (0.0-0.4); Eosinophils % (Auto) 2.4 % (0.0-4.3); Hematocrit 27.2 % (35.5-45.6); Hemoglobin 8.7 gm/dl (11.8-15.2); Lymphocytes # (Auto) 1.8 K/mm3 (1.2-5.4); Lymphocytes % (Auto) 24.9 % (13.4-35.0); Mean Corpuscular HGB Conc 32 % (32-34); Mean Corpuscular Volume 72 fl (84-94); Monocytes # (Auto) 0.5 K/mm3 (0.0-0.8); Platelet Count 363 K/mm3 (140-440); Red Blood Count 3.79 M/mm3 (3.65-5.03); Red Cell Distribution Width 19.2 % (13.2-15.2)
[2017-08-09 08:40] LABS: Mean Corpuscular Hemoglobin 23 pg (28-32)
[2017-08-09 09:00] LABS: BUN/Creatinine Ratio 13; Blood Urea Nitrogen 12 mg/dL (9-20); Calcium 8.5 mg/dL (8.4-10.2); Hemolysis Index 12
[2017-08-09] MEDS: PLAVIX PO SCH (10:44)
[2017-08-09] MEDS: COREG PO SCH ×2 (10:44→22:19)
[2017-08-09] MEDS: ECOTRIN PO SCH (10:44)
[2017-08-09] MEDS: PROTONIX PO SCH (10:44)
--- NOTE | 2017-08-09 11:09 | Progress Note ---
Assessment and Plan - Patient Problems (1) STEMI (ST elevation myocardial infarction) Current Visit: Yes Status: Acute (2) Anemia Current Visit: Yes Status: Acute Subjective Date of service: 08/09/17 Interval history: NO CV C\O,,,mild fatigue Objective Vital Signs Temp Pulse Pulse Resp BP BP Pulse Ox 08/09/17 10:44 101 H 98/58 08/09/17 09:03 98.0 F 87 16 98/58 90 08/09/17 04:38 105 H 96 08/09/17 00:11 110 H 98 08/09/17 00:10 98.6 F 18 112/73 08/08/17 22:00 84 08/08/17 20:13 98.3 F 122 H 18 99/76 98 08/08/17 19:40 126 H 15 08/08/17 19:31 103 H 22 08/08/17 19:21 112 H 21 08/08/17 19:11 111 H 20 08/08/17 19:01 115 H 19 08/08/17 18:57 118 H 22 08/08/17 17:50 107 H 27 H 99 18 17:40 109 H 16 92/60 99 18 17:30 106 H 16 92/60 98 18 17:20 110 H 14 92/60 98 08/08/17 17:10 102 H 13 92/60 98 18 17:00 105 H 16 92/60 98 18 16:50 114 H 11 L 92/60 97 18 16:40 111 H 13 92/60 97 18 16:30 116 H 13 92/60 100 18 16:20 118 H 13 92/60 18 16:10 112 H 23 92/60 18 16:00 100 H 26 H 92/60 96 18 15:50 89 16 123/72 98 08/08/17 15:40 91 H 18 123/72 98 18 15:30 106 H 23 123/72 97 18 15:20 103 H 21 123/72 97 08/08/17 15:10 96 H 18 123/72 95 08/08/17 15:00 98 H 18 123/72 94 08/08/17 14:50 103 H 25 H 103/65 95 18 14:40 95 H 19 103/65 96 08/08/17 14:30 100 H 20 103/65 95 18 14:20 102 H 21 103/65 93 08/08/17 14:10 113 H 17 103/65 98 08/08/17 14:00 99 H 21 103/65 97 08/08/17 13:50 97 H 14 113/70 98 08/08/17 13:40 105 H 13 113/70 98 08/08/17 13:30 108 H 19 113/70 97 08/08/17 13:20 115 H 14 113/70 97 08/08/17 13:10 101 H 20 108/62 99 08/08/17 13:00 100 H 14 108/62 99 08/08/17 12:50 111 H 16 108/62 99 08/08/17 12:40 112 H 21 108/62 98 08/08/17 12:30 107 H 29 H 108/62 96 08/08/17 12:20 98 H 18 108/62 98 08/08/17 12:10 89 15 108/62 98 08/08/17 12:00 127 H 13 108/62 97 08/08/17 11:50 97 H 20 108/62 97 08/08/17 11:40 126 H 18 108/62 98 08/08/17 11:30 84 18 108/62 97 08/08/17 11:20 89 98 H 12 108/62 98 08/08/17 11:10 94 H 13 108/62 95 - Physical Examination General: No Apparent Distress HEENT: Positive: PERRL Neck: Positive: neck supple Cardiac: Positive: Reg Rate and Rhythm Lungs: Positive: clear to auscultation Abdomen: Positive: Unremarkable Extremities: Present: normal - Labs and Meds CBC 08/09/17 Range/Units 08:13 WBC 7.3 (4.5-11.0) K/mm3 RBC 3.79 (3.65-5.03) M/mm3 Hgb 8.7 L (11.8-15.2) gm/dl Hct 27.2 L (35.5-45.6) % Plt Count 363 (140-440) K/mm3 Lymph # 1.8 (1.2-5.4) K/mm3 [place] # 0.5 (0.0-0.8) K/mm3 Eos # 0.2 (0.0-0.4) K/mm3 Baso # 0.1 (0.0-0.1) K/mm3 Comprehensive Metabolic Panel 08/09/17 Range/Units 08:13 Sodium 137 (137-145) mmol/L Potassium 4.2 (3.6-5.0) mmol/L Chloride 100.3 (98-107) mmol/L Carbon Dioxide 23 (22-30) mmol/L BUN 12 (9-20) mg/dL Creatinine 0.9 (0.8-1.5) mg/dL Glucose 105 H (75-100) mg/dL Calcium 8.5 (8.4-10.2) mg/dL
--- NOTE | 2017-08-09 11:47 | Progress Note ---
Assessment and Plan Assessment and plan: --Acute ST elevation [place]; status post PCI to proximal circumflex, LVEF 50 -55% Continue aspirin and Plavix, beta blockers, and statins --Hematuria; unknown etiology, urine analysis did not show significant blood/RBC , Follow urine cultures --Rash ; patient reports that he has finished a course of acyclovir recently Hesitant to give any past history of STDs RPR reactive, follow FTA-ABS tests, Consult ID, I discussed with Dr. Teague --Anemia; mild drop in H&H , stool for occult blood negative ,we'll check iron profile, --Mild hyponatremia; resolved --Dyslipidemia; continue statin, low cholesterol diet --Family history of premature coronary artery disease, --DVT prophylaxis; Lovenox Condition stable cardiac-castañeda for discharge We'll follow ID evaluation and recommendations Possible discharge in 1-2 days if stable Plan of care reviewed with the patient and his nurse History Interval history: Patient seen and evaluated medical records reviewed Patient feels better non-chest pain or shortness of breath Cardiology cleared for discharge Patient has rash on body with positive RPR test Patient is uncooperative and unwilling to disclose Any past history of STDs The patient is alert awake oriented 3 Vital signs are stable Hospitalist Physical - Constitutional Vitals: Temp Pulse Resp BP Pulse Ox 98.0 F 100 H 16 98/58 90 08/09/17 09:03 08/09/17 11:08 08/09/17 09:03 08/09/17 10:44 08/09/17 09:03 General appearance: Present: no acute distress, well-nourished - EENT Eyes: Present: PERRL, EOM intact - Neck Neck: Present: supple, normal ROM - Respiratory Respiratory effort: normal Respiratory: negative: rales, rhonchi, wheezing - Cardiovascular Rhythm: regular Heart Sounds: Present: S1 & S2 - Extremities Extremities: no ischemia, No edema - Abdominal General gastrointestinal: soft, non-tender, non-distended, normal bowel sounds - Integumentary Integumentary: Present: clear, warm, rash - Psychiatric Psychiatric: appropriate mood/affect, cooperative - Neurologic Neurologic: CNII-XII intact, moves all extremities Results - Labs CBC & Chem 7: 08/09/17 08:13 08/09/17 08:13 Labs: Laboratory Last Values WBC 7.3 K/mm3 (4.5-11.0) 08/09/17 08:13 RBC 3.79 M/mm3 (3.65-5.03) 08/09/17 08:13 Hgb 8.7 gm/dl (11.8-15.2) L 08/09/17 08:13 Hct 27.2 % (35.5-45.6) L 08/09/17 08:13 MCV 72 fl (84-94) L 08/09/17 08:13 MCH 23 pg (28-32) L 08/09/17 08:13 MCHC 32 % (32-34) 08/09/17 08:13 RDW 19.2 % (13.2-15.2) H 08/09/17 08:13 Plt Count 363 K/mm3 (140-440) 08/09/17 08:13 Lymph % (Auto) 24.9 % (13.4-35.0) 08/09/17 08:13 Sac % (Auto) 7.0 % (0.0-7.3) 08/09/17 08:13 Eos % (Auto) 2.4 % (0.0-4.3) 08/09/17 08:13 Baso % (Auto) 0.8 % (0.0-1.8) 08/09/17 08:13 Lymph # 1.8 K/mm3 (1.2-5.4) 08/09/17 08:13 Sac # 0.5 K/mm3 (0.0-0.8) 08/09/17 08:13 Eos # 0.2 K/mm3 (0.0-0.4) 08/09/17 08:13 Baso # 0.1 K/mm3 (0.0-0.1) 08/09/17 08:13 Seg Neutrophils % 64.9 % (40.0-70.0) 08/09/17 08:13 Seg Neutrophils # 4.7 K/mm3 (1.8-7.7) 08/09/17 08:13 PT 11.8 Sec. (12.2-14.9) L 08/07/17 06:17 INR 0.83 (0.87-1.13) L 08/07/17 06:17 APTT 27.1 Sec. (24.2-36.6) 08/07/17 06:17 Activated Clotting Time 191 (74-137) H 08/07/17 07:30 Sodium 137 mmol/L (137-145) 08/09/17 08:13 Potassium 4.2 mmol/L (3.6-5.0) 08/09/17 08:13 Chloride 100.3 mmol/L (98-107) 08/09/17 08:13 Carbon Dioxide 23 mmol/L (22-30) 08/09/17 08:13 Anion Gap 18 mmol/L 08/09/17 08:13 BUN 12 mg/dL (9-20) 08/09/17 08:13 Creatinine 0.9 mg/dL (0.8-1.5) 08/09/17 08:13 Estimated GFR > 60 ml/min 08/09/17 08:13 BUN/Creatinine Ratio 13 % 08/09/17 08:13 Glucose 105 mg/dL (75-100) H 08/09/17 08:13 Calcium 8.5 mg/dL (8.4-10.2) 08/09/17 08:13 Magnesium 2.00 mg/dL (1.7-2.3) 08/09/17 08:13 Iron 11 ug/dL (49-181) L 08/08/17 03:48 TIBC 369 mcg/dL (250-450) 08/08/17 03:48 % Saturation 2.98 % 08/08/17 03:48 Transferrin 307 mg/dl (180-329) 08/08/17 03:48 Total Bilirubin 0.40 mg/dL (0.1-1.2) 08/07/17 06:17 AST 26 units/L (5-40) 08/07/17 06:17 ALT 22 units/L (7-56) 08/07/17 06:17 Alkaline Phosphatase 98 units/L (35-129) 08/07/17 06:17 Total Creatine Kinase 687 units/L (55-170) H 08/08/17 03:48 CK-MB (CK-2) 39.9 ng/mL (0.0-4.0) H 08/08/17 03:48 CK-MB (CK-2) Rel Index 5.8 (0-4) H 08/08/17 03:48 Troponin T 0.959 ng/mL (0.00-0.029) H* D 08/08/17 03:48 Total Protein 7.6 g/dL (6.3-8.2) 08/07/17 06:17 Albumin 4.1 g/dL (3.9-5) 08/07/17 06:17 Albumin/Globulin Ratio 1.2 % 08/07/17 06:17 Triglycerides 69 mg/dL (2-149) 08/07/17 08:53 Cholesterol 173 mg/dL (50-199) 08/07/17 08:53 LDL Cholesterol Direct 87 mg/dL (50-130) 08/07/17 08:53 HDL Cholesterol 73 mg/dL (40-59) H 08/07/17 08:53 Cholesterol/HDL Ratio 2.36 % 08/07/17 08:53 Urine Color Straw (Yellow) 08/08/17 Unknown Urine Turbidity Clear (Clear) 08/08/17 Unknown Urine pH 6.0 (5.0-7.0) 08/08/17 Unknown Ur Specific [place] 1.010 (1.003-1.030) 08/08/17 Unknown Urine Protein <15 mg/dl mg/dL (Negative) 08/08/17 Unknown Urine Glucose (UA) Neg mg/dL (Negative) 08/08/17 Unknown Urine Ketones Neg mg/dL (Negative) 08/08/17 Unknown Urine Blood Neg (Negative) 08/08/17 Unknown Urine Nitrite Neg (Negative) 08/08/17 Unknown Urine Bilirubin Neg (Negative) 08/08/17 Unknown Urine Urobilinogen < 2.0 mg/dL (<2.0) 08/08/17 Unknown Ur Leukocyte Esterase Neg (Negative) 08/08/17 Unknown Urine WBC (Auto) 2.0 /HPF (0.0-6.0) 08/08/17 Unknown Urine RBC (Auto) 2.0 /HPF (0.0-6.0) 08/08/17 Unknown Urine Mucus 3+ /HPF 08/08/17 Unknown RPR Titer 1:256 08/07/17 13:07 RPR Reactive (Nonreactive) 08/07/17 13:07 HIV 1&2 Antibody Rapid Non react (Non React) 08/07/17 13:07 HIV P24 Antigen Non react (Non React) 08/07/17 13:07 Blood Type O POSITIVE 08/07/17 06:17 Antibody Screen Negative 08/07/17 06:17
--- NOTE | 2017-08-09 15:48 | Consultation ---
History of Present Illness - Reason for Consult Consult date: 08/09/17 rash/positive RPR Requesting physician: JONN KOLB - History of Present Illness 42-year-old male with no significant past medical history; admitted on 08/07 due to severe chest pain in the center of the chest, heartburn-type = associated with shortness of breath and sweating throughout the night. Pt smokes 2 cigarettes / day. Positive family history of CAD. Patient was noted to have acute inferior ST elevation FL. He was taken emergently to the laboratory equipment cleaner and was noted to have thrombotic significant stenosis of the circumflex artery. He underwent successful percutaneous intervention with a bare metal stent. Patient is being admitted post PCI. Of note, pt reports a generalized nodular, scaly rash for 2 weeks. Lesions are scattered over his legs, genitals, torso and back. He had similar rash in Summer 2016 and was treated. He is currently very anxious and cannot recall which Rx he took. In the ED, initial temperature 97.9, HR 93, respiration 18, initial white count 8.7. Hemoglobin 9.5. Creatinine 1. Troponins went to 0.9. Urinalysis is negative. HIV rapid negative. RPR reactive at 1:256. Noted low grade temp 100.3 Microbiology: none Current Antimicrobials: none Previous Antimicrobials: Past History Past Medical History: No medical history Past Surgical History: No surgical history Social history: smoking ( ex-smoker) Family history: CAD, hypertension Medications and Allergies Allergies Allergy/AdvReac Type Severity Reaction Status Date / Time No Known Allergies Allergy Verified 03/07/17 04:37 Home Medications Medication Instructions Recorded Confirmed Last Taken Type Acyclovir [Zovirax Cap] 200 mg PO 5XD #25 cap 03/07/17 Unknown Rx Benzocaine/Menthol [Cepacol Sore 1 each MM Q4H PRN #1 box 03/07/17 Unknown Rx Throat Lozenge] Naproxen [Naprosyn TAB] 500 mg PO BID PRN #20 tablet 03/07/17 Unknown Rx Active Meds: Active Medications Alprazolam (Xanax) 0.25 mg PO Q8H PRN PRN Reason: Anxiety Last Admin: 08/08/17 21:55 Dose: 0.25 mg Aspirin (Ecotrin) 325 mg PO QDAY [place] Last Admin: 08/09/17 10:44 Dose: 325 mg Atorvastatin Calcium (Lipitor) 80 mg PO QHS [facility] Last Admin: 08/08/17 21:55 Dose: 80 mg Carvedilol (Coreg) 3.125 mg PO BID [facility] Last Admin: 08/09/17 10:44 Dose: 3.125 mg Clopidogrel Bisulfate (Plavix) 75 mg PO QDAY [facility] Last Admin: 08/09/17 10:44 Dose: 75 mg Morphine Sulfate (Morphine) 4 mg IV Q4H PRN PRN Reason: Pain, Moderate (4-6) Last Admin: 08/07/17 12:15 Dose: 4 mg Morphine Sulfate (Morphine) 2 mg IV Q4H PRN PRN Reason: Pain, Moderate (4-6) Last Admin: 08/07/17 22:53 Dose: 2 mg Ondansetron HCl (Zofran) 4 mg IV PRN PRN PRN Reason: Nausea Pantoprazole Sodium (Protonix) 40 mg PO QDAY [facility] Last Admin: 08/09/17 10:44 Dose: 40 mg Zolpidem Tartrate (Ambien) 10 mg PO QHS PRN PRN Reason: Insomnia Last Admin: 08/07/17 22:12 Dose: 10 mg Review of Systems All systems: negative (as per HPI rest neg, now c/o cough and sneezing) Physical Examination - Physical Exam Narrative exam: General appearance: Alert in NAD, conversant Eyes: anicteric sclerae, moist conjunctivae; no lid-lag; PERRLA HENT: Atraumatic; oropharynx clear. Neck: Trachea midline; supple, no thyromegaly or lymphadenopathy Lungs: CTA, with normal respiratory effort and no intercostal retractions CV: RRR, no murmurs Abdomen: Soft, non-tender; no masses or hepatosplenomegaly Extremities: No peripheral edema or extremity lymphadenopathy Skin: +scattered round nodular scaly lesions over llegs, arms, torso Psych: Appropriate affect, alert and oriented to person, place and time. Neuro: alert and oriented x 3. Moving all extermities Lines: No CVL / PICC - Constitutional Vitals: Vital Signs Temp Pulse Resp BP Pulse Ox 97.4 F L 112 H 18 116/65 97 08/09/17 12:47 08/09/17 12:47 08/09/17 12:47 08/09/17 12:47 08/09/17 12:47 Temperature -Last 24 Hours Temperature 97.4 F Temperature 98.0 F Temperature 98.6 F Temperature 98.3 F Results - Labs CBC & Chem 7: 08/09/17 08:13 08/09/17 08:13 Labs: Abnormal lab results 08/09/17 08/09/17 Range/Units 08:13 08:13 Hgb 8.7 L (11.8-15.2) gm/dl Hct 27.2 L (35.5-45.6) % MCV 72 L (84-94) fl MCH 23 L (28-32) pg RDW 19.2 H (13.2-15.2) % Glucose 105 H (75-100) mg/dL Assessment and Plan Assessment: 1) Nodular Rash with reactive RPR at 1:256. 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 post procedure PCI Plan: -start Benzathine penicillin G 2.4 million x 1 dose -needs RPR with titers at 3, 6, 12 and 24 months after treatment -check FTA, GC/chlamydia and viral hepatitis Thank you for your consultation, will follow up with you. Sarah Harding MD Infectious Diseases Specialist [facility] ([facility] M [phone] O [phone]
[2017-08-09] MEDS ORDERED: MORPHINE IV PRN ×2 (17:00→18:00)
[2017-08-09] MEDS ORDERED: BICILLIN L-A IM ONE (17:00)
[2017-08-09 17:02] LABS: Hepatitis A Antibody IgM Non-Reactive (NonReactive); Hepatitis B Core IgM Non-Reactive (NonReactive); Hepatitis B Surface Antigen Non-Reactive (Negative); Hepatitis C Virus Antibody Non-Reactive (NonReactive)
[2017-08-10] MEDS: PROTONIX PO SCH (10:05)
[2017-08-10] MEDS: PLAVIX PO SCH (10:05)
[2017-08-10] MEDS: COREG PO SCH (10:05)
[2017-08-10] MEDS: ECOTRIN PO SCH (10:05)
--- NOTE | 2017-08-10 10:16 | Progress Note ---
Assessment and Plan Assessment: 1) Nodular Rash with reactive RPR at 1:256. 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 post procedure PCI Plan: -s/p Benzathine penicillin G 2.4 million x 1 dose on 3 -needs RPR with titers at 3, 6, 12 and 24 months after treatment -f/u FTA, GC/chlamydia and viral hepatitis -educated about syphilis and testing of his -Health department f/u for secondary syphilis-patient has no insurance and he is not interested to go to my office. I am signing off Thank you for your consultation, will follow up with you. Sarah Harding MD Infectious Diseases Specialist [facility] ([facility] M [phone] O [phone] Subjective Date of service: 08/10/17 Principal diagnosis: rash and positive RPR Interval history: Feels better c/o groin itching. No fever. Microbiology: none Current Antimicrobials: Benzathine penicillin G 2.4 million x 1 dose given 08/09 Previous Antimicrobials: Objective - Exam Narrative Exam: General appearance: Alert in NAD, conversant Eyes: anicteric sclerae, moist conjunctivae; no lid-lag; PERRLA HENT: Atraumatic; oropharynx clear. Neck: Trachea midline; supple, no thyromegaly or lymphadenopathy Lungs: CTA, with normal respiratory effort and no intercostal retractions CV: RRR, no murmurs Abdomen: Soft, non-tender; no masses or hepatosplenomegaly Extremities: No peripheral edema or extremity lymphadenopathy Skin: +scattered round nodular scaly lesions over llegs, arms, torso Psych: Appropriate affect, alert and oriented to person, place and time. Neuro: alert and oriented x 3. Moving all extermities Lines: No CVL / PICC - Constitutional Vitals: Vital Signs Temp Pulse Resp BP Pulse Ox 98.9 F 96 H 18 110/69 96 08/10/17 07:56 08/10/17 10:05 08/10/17 07:56 08/10/17 10:05 08/10/17 08:39 Temperature -Last 24 Hours Temperature 98.9 F Temperature 98.3 F Temperature 98.3 F Temperature 97.6 F Temperature 98.2 F Temperature 97.4 F - Labs CBC & Chem 7: 08/09/17 08:13 08/09/17 08:13
--- NOTE | 2017-08-10 11:51 | Discharge Summary ---
Providers - Providers Date of Admission: 08/07/17 07:27 Date of discharge: 08/10/17 Attending physician: JONN KOLB 08/07/17 Consult to Cardiac Rehabilitation [CONS] Routine Reason For Exam: post pci 08/07/17 12:09 Consult to Wound/ET Nurse [CONS] Routine Reason For Exam: wound eval 08/09/17 14:56 Consult to Physician [CONS] Routine Consulting Provider: VIVIANA PRECIADO Reason For Exam: Rash/positive RPR Place consult to:: ID Notified:: DR THAKUR Was contact made?: Yes If yes, spoke with:: DR THAKUR Time called:: 15:54 08/10/17 10:25 Consult to Case Management [CONS] Stat Services Needed at Discharge: 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 Treated with IM penicillin on 08/09/17 -Health department f/u for secondary syphilis-patient has no insurance and he is not interested to go to my office. Primary care physician: DOV CAROLINA Hospitalization Condition: Stable Disposition: DC-01 TO HOME OR SELFCARE Time spent for discharge: 32 min Core Measure Documentation - Palliative Care Palliative Care/ Comfort Measures: Not Applicable - Core Measures Any of the following diagnoses?: none Exam - Constitutional Vitals: Temp Pulse Resp BP Pulse Ox 98.9 F 96 H 18 110/69 96 08/10/17 07:56 08/10/17 10:05 08/10/17 07:56 08/10/17 10:05 08/10/17 08:39 General appearance: Present: no acute distress, well-nourished - EENT Eyes: Present: PERRL, EOM intact - Neck Neck: Present: supple, normal ROM - Respiratory Respiratory effort: normal Respiratory: bilateral: diminished, negative: rales, rhonchi, wheezing - Cardiovascular Rhythm: regular Heart Sounds: Present: S1 & S2 - Extremities Extremities: no ischemia, No edema - Abdominal General gastrointestinal: Present: soft, non-tender, non-distended, normal bowel sounds - Integumentary Integumentary: Present: clear, warm - Musculoskeletal Musculoskeletal: strength equal bilaterally - Psychiatric Psychiatric: appropriate mood/affect, cooperative - Neurologic Neurologic: CNII-XII intact, moves all extremities Plan Activity: advance as tolerated Diet: other (Cardiac diet) Additional Instructions: [facility] and management of his rash, possible secondary syphilis. Advised that his needs to be checked at the health department for further evaluation and management. Patient verbalized understanding Follow up with: DOV CAROLINA MD [Primary Care Provider] - 7 Days VIVIANA PRECIADO MD [Staff Physician] - 7 Days ISAIAS DOVER MD [Staff Physician] - 7 Days Prescriptions: Aspirin EC [Aspirin Enteric Coated TAB] 81 mg PO QDAY #30 tablet. AtorvaSTATin [Lipitor] 80 mg PO QHS #30 tablet Carvedilol [Coreg] 3.125 mg PO BID #60 tablet Clopidogrel [Plavix] 75 mg PO QDAY #30 tablet Pantoprazole [Protonix TAB] 40 mg PO QDAY #14 tablet
--- NOTE | 2017-08-10 11:52 | Progress Note ---
Assessment and Plan - Patient Problems (1) STEMI (ST elevation myocardial infarction) Current Visit: Yes Status: Acute Plan to address problem: Acute STEMI s/p PCI of the Cx using a BMS EF 50-55% on echocardiogram Recommendations: Continue medical therapy for coronary artery disease including plavix and aspirin without interruption. Stable cardiac castañeda. Follow up with [facility] within 1 week of discharge. Subjective Date of service: 08/10/17 Principal diagnosis: rash and positive RPR Interval history: Patient denies chest pain and shortness of breath. Objective Vital Signs Temp Pulse Resp BP BP Pulse Ox 08/10/17 10:05 96 H 110/69 08/10/17 08:39 96 08/10/17 07:56 98.9 F 96 H 18 110/69 96 08/10/17 05:30 98.3 F 102 H 16 100/71 97 08/10/17 04:25 115 H 08/10/17 00:20 98.3 F 111 H 20 99/58 97 08/09/17 22:19 109 H 123/88 08/09/17 20:24 97.6 F 109 H 16 123/88 100 08/09/17 19:45 51 L 08/09/17 18:45 98.2 F 51 L 18 120/89 98 08/09/17 12:47 97.4 F L 112 H 18 116/65 97 08/09/17 11:55 98 - Physical Examination General: No Apparent Distress HEENT: Positive: PERRL Cardiac: Positive: Reg Rate and Rhythm Lungs: Positive: Decreased Breath Sounds Neuro: Positive: Grossly Intact Extremities: Absent: edema
[2017-08-10 12:40] VITALS: BP 108/68
== END 2017-08-10 14:15 | disposition home or self-care (01) | DRG 249 ==
LOC: ED 05:53 → CATH 07:26 → CC1 07:27 → 4A 08-08 20:09
PROVIDERS: ADMIT Internal Medicine; ATTEND Internal Medicine
PROC: 4A023N7 Measurement of Cardiac Sampling and Pressure, Left Heart, Percutaneous Approach (ICD-10-PCS; principal; 2017-08-07)
PROC: 02703DZ Dilation of Coronary Artery, One Artery with Intraluminal Device, Percutaneous Approach (ICD-10-PCS; 2017-08-07)
PROC: B2111ZZ Fluoroscopy of Multiple Coronary Arteries using Low Osmolar Contrast (ICD-10-PCS; 2017-08-07)
PROC: B2151ZZ Fluoroscopy of Left Heart using Low Osmolar Contrast (ICD-10-PCS; 2017-08-07)
PROC: 3E0234Z Introduction of Serum, Toxoid and Vaccine into Muscle, Percutaneous Approach (ICD-10-PCS; 2017-08-07)
DX: I21.3 ST elevation (STEMI) myocardial infarction of unspecified site (principal); E87.1 Hypo-osmolality and hyponatremia; F17.210 Nicotine dependence, cigarettes, uncomplicated; Z82.49 Family history of ischemic heart disease and other diseases of the circulatory system; R31.9 Hematuria, unspecified; D64.9 Anemia, unspecified; J38.2 Nodules of vocal cords; E78.5 Hyperlipidemia, unspecified; Z23 Encounter for immunization
CPT/HCPCS: 36415; 71045; 80048; 80053; 80061; 80074; 81001; 82270; 82550; 82553; 83550; 83735; 84484; 85025; 85347; 85610; 85730; 86592; 86593; 86695; 86780; 86850; 86900; 86901; 87086; 87806; 90686; 92941; 93005; 93010; 93306; 93458; 96374; 96375; A9270-GY; C1725; C1760; C1769; C1876; C1887; C1894; J0561; J1644; J2250; J2270; J3010; Q9967

== ENCOUNTER 2020-02-09 03:08 | Emergency (ER) | payer SELFPAY ==
[2020-02-09 05:18] VITALS: BP 138/104
[2020-02-09] MEDS ORDERED: ONDANSETRON 4 MG ODT TAB PO ONE (05:52)
[2020-02-09] MEDS ORDERED: AMOXICILLIN/K CLAV 875/125MG TAB PO ONE (05:52)
[2020-02-09] MEDS ORDERED: HYDROcodone/ACETAMINOPHEN 7.5-325MG TAB PO ONE (05:52)
[2020-02-09] MEDS ORDERED: KETOROLAC 30 MG/1 ML INJ IM ONE (05:52)
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
== END 2020-02-09 06:48 | disposition home or self-care (01) ==
LOC: ED 03:08
DX: S02.602A Fracture of unspecified part of body of left mandible, initial encounter for closed fracture (principal); Z98.890 Other specified postprocedural states; Z79.82 Long term (current) use of aspirin; Z79.899 Other long term (current) drug therapy; T74.11XA Adult physical abuse, confirmed, initial encounter; Y93.89 Activity, other specified; Y92.89 Other specified places as the place of occurrence of the external cause; Y99.8 Other external cause status
CPT/HCPCS: 96372; 99282; J1885; Q0162

== ENCOUNTER 2020-02-19 06:34 | Emergency (ER) | payer SELFPAY ==
[2020-02-19 07:16] VITALS: BP 152/104
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
== END 2020-02-19 08:23 | disposition left against medical advice (07) ==
LOC: ED 06:34
DX: S02.609A Fracture of mandible, unspecified, initial encounter for closed fracture (principal); I25.2 Old myocardial infarction; F17.200 Nicotine dependence, unspecified, uncomplicated; Z79.899 Other long term (current) drug therapy; Z95.818 Presence of other cardiac implants and grafts; X58.XXXA Exposure to other specified factors, initial encounter; Y93.89 Activity, other specified; Y92.89 Other specified places as the place of occurrence of the external cause; Y99.8 Other external cause status
CPT/HCPCS: 99282

== ENCOUNTER 2020-12-03 17:29 | Inpatient (IN) | payer OTHER ==
[2020-12-03] MEDS ORDERED: AMMONIA INHALANT IH ONE ×2 (17:50→17:53)
[2020-12-03] MEDS ORDERED: LOPERAMIDE 2 MG CAP ONE (17:51)
--- NOTE | 2020-12-03 18:16 | XRay Report ---
CHEST 1 VIEW 12/03/2020 5:48 PM INDICATION / CLINICAL INFORMATION: Altered Mental Status. COMPARISON: 03/07/17. FINDINGS: SUPPORT DEVICES: None. HEART / MEDIASTINUM: The heart size and pulmonary vasculature are normal. LUNGS / PLEURA: No significant pulmonary or pleural abnormality. No pneumothorax. ADDITIONAL FINDINGS: No significant additional findings. IMPRESSION: No acute abnormality or significant change. Signer Name: Flash Pace MD Signed: 12/03/2020 6:11 PM Workstation Name: [id number]
--- NOTE | 2020-12-03 18:33 | Cat Scan Report ---
CT head/brain wo con INDICATION: Altered Mental Status. TECHNIQUE: Routine CT head. All CT scans at this location are performed using CT dose reduction for A SHRUTHI by means of automated exposure control. COMPARISON: None. FINDINGS: Intracranial: Shelley-white matter differentiation is maintained. No intracranial hemorrhage. No extra a xial collection. No hydrocephalus. No herniation. Sinuses: Paranasal sinuses and mastoid air cells are essentially clear. Orbits: Globes are intact. Calvarium: No acute fracture. IMPRESSION: 1. No acute intracranial abnormality. Signer Name: Jose Lau MD Signed: 12/03/2020 6:29 PM Workstation Name: [id number]
[2020-12-03 18:35] LABS: Alanine Aminotransferase 17 units/L (7-56); Albumin 4.3 g/dL (3.9-5); BUN/Creatinine Ratio 13; Blood Urea Nitrogen 13 mg/dL (9-20); Calcium 9.5 mg/dL (8.4-10.2); Hemolysis Index 3
--- NOTE | 2020-12-03 18:40 | Emergency Department Report ---
ED General Adult HPI - General Chief complaint: Altered Mental Status Stated complaint: MED CLEARANCE Time Seen by Provider: 12/03/20 17:52 Source: police, RN notes reviewed, old records reviewed Mode of arrival: Ambulatory Limitations: Altered Mental Status - History of Present Illness Initial comments: The patient is a 45-year-old gentleman. His past history includes heart disease, stent, status post STEMI, also with a history of presumed syphilis, who is brought to the hospital by emergency medical services and law enforcement custody. Additional past history includes chronic anemia, mild hyponatremia, dyslipidemia. The patient is currently not answering any questions. History obtained by accompanying police guard. The police guard reports that the patient was pulled over and was arrested for presumed methamphetamine intoxication. The police guard stated that in the field, the patient ambulated with a steady gait, not endorse any medical complaints. The police guard then stated that once the patient got into the back of the police car, he became unresponsive. There was no shaking or foaming at the mouth. In the emergency room, the patient is not speaking. He flutters his eyes, and then closes his eyes very tightly when we try to examine him. The patient will not answer any questions. The patient is not accompanied by friends or family at this time for collateral information. The patient had a nasal cannula applied, and ammonium inhalants was then crossed, and insufflated into nasal cannula with a Xi syringe. At this point in time, the patient woke up, cough, move 4 extremities. He then laid himself down, he would not speak to this provider. His last known well time is not explicitly known at this time. -: This afternoon Quality: other Consistency: other Improves with: other Worsens with: other Associated Symptoms: other Treatments Prior to Arrival: other - Related Data Previous Rx's Medication Instructions Recorded Last Taken Type Acyclovir [Zovirax Cap] 200 mg PO 5XD #25 cap 03/07/17 Unknown Rx Benzocaine/Menthol [Cepacol Sore 1 each MM Q4H PRN #1 box 03/07/17 Unknown Rx Throat Lozenge] Naproxen [Naprosyn TAB] 500 mg PO BID PRN #20 tablet 03/07/17 Unknown Rx Aspirin EC [Halfprin EC] 81 mg PO QDAY #30 tablet 08/10/17 Unknown Rx AtorvaSTATin [Lipitor] 80 mg PO QHS #30 tablet 08/10/17 Unknown Rx Clopidogrel [Plavix] 75 mg PO QDAY #30 tablet 08/10/17 Unknown Rx Lisinopril [Zestril TAB] 2.5 mg PO QDAY #30 tab 08/10/17 Unknown Rx Pantoprazole [Protonix TAB] 40 mg PO QDAY #14 tablet 08/10/17 Unknown Rx carvediloL [Coreg] 3.125 mg PO BID #60 tablet 08/10/17 Unknown Rx Amoxicillin [Trimox CAP] 500 mg PO Q8H #30 capsule 02/09/20 Unknown Rx Ibuprofen [Motrin] 600 mg PO Q8H PRN #30 tablet 02/09/20 Unknown Rx traMADoL [Ultram] 50 mg PO Q6HR PRN #12 tablet 02/09/20 Unknown Rx Allergies Allergy/AdvReac Type Severity Reaction Status Date / Time No Known Allergies Allergy Verified 03/07/17 04:37 ED Review of Systems ROS: Stated complaint: MED CLEARANCE Other details as noted in HPI Comment: Unobtainable due to pts medical conditions ED Past Medical Hx - Past Medical History Hx Heart Attack/AMI: Yes Hx Congestive Heart Failure: No Hx Diabetes: No Hx Asthma: No Hx COPD: No Hx HIV: No 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. Jaw pain - Surgical History Hx Coronary Stent: Yes - Social History Smoking Status: Unknown if ever smoked Substance Use Type: Methamphetamines - Medications Home Medications: Home Medications Medication Instructions Recorded Confirmed Last Taken Type Acyclovir [Zovirax Cap] 200 mg PO 5XD #25 cap 03/07/17 Unknown Rx Benzocaine/Menthol [Cepacol Sore 1 each MM Q4H PRN #1 box 03/07/17 Unknown Rx Throat Lozenge] Naproxen [Naprosyn TAB] 500 mg PO BID PRN #20 tablet 03/07/17 Unknown Rx Aspirin EC [Halfprin EC] 81 mg PO QDAY #30 tablet. 08/10/17 Unknown Rx AtorvaSTATin [Lipitor] 80 mg PO QHS #30 tablet 08/10/17 Unknown Rx Clopidogrel [Plavix] 75 mg PO QDAY #30 tablet 08/10/17 Unknown Rx Lisinopril [Zestril TAB] 2.5 mg PO QDAY #30 tab 08/10/17 Unknown Rx Pantoprazole [Protonix TAB] 40 mg PO QDAY #14 tablet 08/10/17 Unknown Rx carvediloL [Coreg] 3.125 mg PO BID #60 tablet 08/10/17 Unknown Rx Amoxicillin [Trimox CAP] 500 mg PO Q8H #30 capsule 02/09/20 Unknown Rx Ibuprofen [Motrin] 600 mg PO Q8H PRN #30 tablet 02/09/20 Unknown Rx traMADoL [Ultram] 50 mg PO Q6HR PRN #12 tablet 02/09/20 Unknown Rx ED Physical Exam - General Limitations: Other (The patient will not respond) General appearance: in no apparent distress - Head Head exam: Present: atraumatic, normocephalic - Eye Eye exam: Present: normal appearance, PERRL, other (The patient closes his eyes tightly when we attempt to examine them. When opened, the eyes do react to threat and blink in response to threat) - ENT ENT exam: Present: normal exam, normal orophraynx, mucous membranes moist, normal external ear exam - Neck Neck exam: Present: normal inspection. Absent: tenderness, meningismus - Respiratory Respiratory exam: Present: normal lung sounds bilaterally. Absent: respiratory distress, wheezes, rales, rhonchi, stridor, decreased breath sounds - Cardiovascular Cardiovascular Exam: Present: tachycardia, irregular rhythm, normal heart sounds. Absent: regular rate, bradycardia, systolic murmur, diastolic murmur, rubs, gallop - GI/Abdominal GI/Abdominal exam: Present: soft. Absent: distended, tenderness, rigid, pulsatile mass - Rectal Rectal exam: Present: deferred - Extremities Exam Extremities exam: Present: normal inspection, full ROM, other (2+ pulses noted in the bilateral upper and lower extremities. There is no palpable cord. negative Homans sign. Muscular compartments are soft. The pelvis is stable.). Absent: calf tenderness - Back Exam Back exam: Present: normal inspection. Absent: tenderness, CVA tenderness (R), CVA tenderness (L), paraspinal tenderness, vertebral tenderness - Neurological Exam Neurological exam: Present: altered, other (The patient will not speak to me. After ammonia inhalant, set up, wound 4 extremities. Then he laid down. There is no obvious facial droop.) - Skin Skin exam: Present: warm, dry, intact, normal color. Absent: rash ED Course Vital Signs 12/03/20 12/03/20 12/03/20 17:52 18:00 18:13 Temperature 98.0 F Pulse Rate 111 H Respiratory 20 Rate Blood Pressure 158/113 149/106 149/107 O2 Sat by Pulse 97 Oximetry 12/03/20 12/03/20 12/03/20 18:31 18:45 19:00 Temperature Pulse Rate Respiratory Rate Blood Pressure 157/107 157/107 157/107 O2 Sat by Pulse 100 100 100 Oximetry 12/03/20 12/03/20 12/03/20 19:15 19:30 19:46 Temperature Pulse Rate Respiratory Rate Blood Pressure 159/107 159/107 146/100 O2 Sat by Pulse 100 100 100 Oximetry 12/03/20 12/03/20 12/03/20 20:00 20:16 20:30 Temperature Pulse Rate 101 H 110 H 86 Respiratory 19 25 H 21 Rate Blood Pressure 141/97 148/104 153/106 O2 Sat by Pulse 100 100 100 Oximetry 12/03/20 12/03/20 12/03/20 20:46 21:00 21:16 Temperature Pulse Rate 103 H 70 105 H Respiratory 26 H 15 15 Rate Blood Pressure 154/98 148/99 140/105 O2 Sat by Pulse 100 98 98 Oximetry 12/03/20 12/03/20 22:53 23:00 Temperature Pulse Rate Respiratory Rate Blood Pressure 143/105 139/103 O2 Sat by Pulse 99 100 Oximetry - Reevaluation(s) Reevaluation #1: 12/03/20 18:40 Differential diagnosis, including but not limited to: Methamphetamine toxicity, anemia, acute coronary syndrome, intracranial lesion, polysubstance intoxication, thyroid derangement, electrolyte derangement, malingering Assessment and plan: 45-year-old gentleman, who is afebrile, with reassuring vi werner signs, with resolved tachycardia, who is likely presenting with an episode of malingering after being arrested. Place patient on lead miner blasting. Obtain appropriate laboratory studies, x-ray of the chest, noncontrast CT scan of the brain, reassess. 12/03/20 19:40 Change in plans. Patient found to have low TSH, suspicious for hyperthyroidism. Given alteration in mental status, hypothyroidism must be entertained, along the spectrum of thyrotoxicosis and thyroid storm. Repeat EKG requested, rectal temp requested, urinalysis requested, lactic acid requested, patient will be medicated empirically with propanolol, Lugol's solution, steroids, and propylthiouracil. If patient not able to tolerate by mouth, NG tube will be placed. Discussed with police guard. At this point in time, patient will require medical admission. [employer] Marie has released the patient from police custody, but request that law enforcement be contacted when the patient is deemed medically cleared for incarceration. Will defer to inpatient team to follow-up on this. 12/03/20 19:56 40 points John-Wartofsky Point Scale (BWPS) for Thyrotoxicosis Suggestive of impending thyroid storm Afebrile rectally. Repeat EKG clearly definitive of sinus rhythm. Free T4 and cortisol level pending. CBC with differential added. Patient will be admitted to the medical service for presumed hyperthyroidism and altered mental status. 12/03/20 21:32 Walked into the room. Patient started twitching his legs. However, this stopped on its own. CT angiogram head and neck ordered. 12/03/20 21:53 The patient is now awake. He is moving 4 extremities. He is having lucid conversation. It was explained to the patient that given his thyroid findings, and altered mental status, a nasogastric tube would need to be placed to administer medications. The patient woke up, and took oral medications. He is speaking to us in complete sentences. He is actively vomiting from the Lugol's solution. CT angiogram head and neck pending. Given his improvement in mental status, this is less supportive of Thyroid storm, and more supportive of subclinical hyperthyroidism, and a probable component of malingering, as I originally suspected. Reevaluation #2: 12/03/20 22:24 ct angio head negative; CT angiogram neck negative. Patient remains awake, following commands, but is still actively retching. 12/03/20 23:09 Patient awake. Vomiting/retching have resolved. The patient is amenable to admission hospitalization. Hospital physician, Dr. France to admit to [facility] ED Medical Decision Making - Lab Data Result diagrams: 12/03/20 17:56 12/03/20 17:56 Vital Signs 12/03/20 18:13 Temperature 98.0 F Pulse Rate 111 H Respiratory 20 Rate Blood Pressure 149/107 O2 Sat by Pulse 97 Oximetry Lab Results 12/03/20 12/03/20 12/03/20 Range/Units 17:56 17:56 17:56 Sodium 137 (137-145) mmol/L Potassium 3.8 (3.6-5.0) mmol/L Chloride 102.7 (98-107) mmol/L Carbon Dioxide 24 (22-30) mmol/L Anion Gap 14 mmol/L BUN 13 (9-20) mg/dL Creatinine 1.0 (0.8-1.3) mg/dL Estimated GFR > 60 ml/min BUN/Creatinine Ratio 13 % Glucose 110 H (75-100) mg/dL Calcium 9.5 (8.4-10.2) mg/dL Total Bilirubin 0.50 (0.1-1.2) mg/dL AST 23 (5-40) units/L ALT 17 (7-56) units/L Alkaline Phosphatase 107 (35-129) units/L Total Protein 7.7 (6.3-8.2) g/dL Albumin 4.3 (3.9-5) g/dL Albumin/Globulin Ratio 1.3 % Salicylates < 0.3 L (2.8-20.0) mg/dL Acetaminophen 5.0 L (10.0-30.0) ug/mL - EKG Data -: EKG Interpreted by Wa - EKG Data 12/03/20 18:44 The EKG is interpreted at 18: 37 Rate is approximately 85 bpm. There is a borderline rightward axis. There are PVCs. QTc 433 ms. IL interval 150 ms. Rhythm is likely ectopic atrial rhythm. Nonspecific pain changes when compared to prior EKG from 08/07/2017 The EKG is not a STEMI 12/03/20 19:57 EKG #2 performed at 19: 43 Sinus rhythm, normal P wave axis, rate 99 bpm, normal axis, QTC 444 ms. Not a STEMI. Nonspecific changes when compared to prior EKG. - Radiology Data Radiology results: pending, report reviewed, image reviewed CT head/brain wo con INDICATION: Altered Mental Status. TECHNIQUE: Routine CT head. All CT scans at this location are performed using CT dose reduction for ALARA by means of automated exposure control. COMPARISON: None. FINDINGS: Intracranial: Shelley-white matter differentiation is maintained. No intracranial hemorrhage. No extra axial collection. No hydrocephalus. No herniation. Sinuses: Paranasal sinuses and mastoid air cells are essentially clear. Orbits: Globes are intact. Calvarium: No acute fracture. IMPRESSION: 1. No acute intracranial abnormality. Signer Name: Jose Lau MD Signed: 12/03/2020 5:29 PM Workstation Name: [id number] CHEST 1 VIEW 12/03/2020 5:48 PM INDICATION / CLINICAL INFORMATION: Altered M ental Status. COMPARISON: 03/07/17. FINDINGS: SUPPORT DEVICES: None. HEART / MEDIASTINUM: The heart size and pulmonary vasculature are normal. LUNGS / PLEURA: No significant pulmonary or pleural abnormality. No pneumothorax. ADDITIONAL FINDINGS: No significant additional findings. IMPRESSION: No acute abnormality or significant change. Signer Name: Flash Pace MD Signed: 12/03/2020 5:11 PM Workstation Name: [id number] Critical Care Time: Yes Critical care time in (mins) excluding proc time.: 35 Critical care attestation.: If time is entered above; I have spent that time in minutes in the direct care of this critically ill patient, excluding procedure time. ED Disposition Clinical Impression: Acute encephalopathy, Thyrotoxicosis Disposition: OP ADMIT IP TO THIS HOSP Is pt being admited?: Yes Does the pt Need Aspirin: No Condition: Serious Referrals: PRIMARY CARE, [Primary Care Provider] - 3-5 Days
[2020-12-03 18:56] LABS: Hematocrit 44.4 % (35.5-45.6); Hemoglobin 14.8 gm/dl (11.8-15.2)
[2020-12-03] MEDS ORDERED: POTASSIUM IODIDE/IODINE (LUGOLS) 5% ORAL LIQD 5 ML PO STA (19:30)
[2020-12-03] MEDS ORDERED: HYDROCORTISONE SOD SUCC 100 MG/2 ML VIAL IV ONE (19:30)
[2020-12-03] MEDS ORDERED: propylthiouraciL 50 MG TAB PO STA (19:30)
[2020-12-03] MEDS ORDERED: PROPRANOLOL 10 MG TAB PO ONE (19:32)
[2020-12-03 20:07] LABS: Basophils # (Auto) 0.1 K/mm3 (0.0-0.1); Eosinophils # (Auto) 0.1 K/mm3 (0.0-0.4); Eosinophils % (Auto) 1.3 % (0.0-4.3); Hematocrit 43.4 % (35.5-45.6); Hemoglobin 14.4 gm/dl (11.8-15.2); Lymphocytes # (Auto) 1.8 K/mm3 (1.2-5.4); Lymphocytes % (Auto) 33.2 % (13.4-35.0); Mean Corpuscular HGB Conc 33 % (32-34); Mean Corpuscular Volume 84 fl (84-94); Monocytes # (Auto) 0.4 K/mm3 (0.0-0.8); Monocytes % (Auto) 7.4 % (0.0-7.3); Platelet Count 225 K/mm3 (140-440); Red Blood Count 5.17 M/mm3 (3.65-5.03); Red Cell Distribution Width 13.8 % (13.2-15.2)
[2020-12-03 20:26] LABS: Bilirubin,Urine NEG (Negative); Blood,Urine NEG (Negative); Color,Urine Yellow (Yellow); Mucus,Urine FEW /HPF; Protein,Urine <15 mg/dL mg/dL (Negative); Urobilinogen,Urine < 2.0 mg/dL (<2.0)
[2020-12-03] MEDS ORDERED: SODIUM CHLORIDE 0.9% 500 ML 500 ML IV ONE (20:39)
[2020-12-03] MEDS ORDERED: ONDANSETRON 4 MG/2 ML INJ ONE (21:49)
[2020-12-03] MEDS ORDERED: ONDANSETRON 4 MG/2 ML INJ IV ONE (21:52)
--- NOTE | 2020-12-03 22:02 | Cat Scan Report ---
CT angio neck HISTORY: Altered Mental Status COMPARISON: None. TECHNIQUE: Routine CTA of the neck is performed. 3-D/MIP reformats were postprocessed. Percentage st enosis is determined by direct quantitative measurements of diseased internal carotid artery diameter compared with normal distal internal carotid artery reference segments or by criteria similar to BRENDA CET where applicable. All CT scans at this location are performed using CT dose reduction for ALARA b y means of automated exposure control. FINDINGS: Aortic arch: No significant abnormality. Cervical vertebral arteries: No occlusion or hemodynamically significant stenosis. Common Carotid arteries: No occlusion or hemodynamically significant stenosis. Internal carotid arteries: No occlusion or hemodynamically significant stenosis. Additional findings: None. IMPRESSION: 1. No occlusion or significant stenosis. Signer Name: Jose Lau MD Signed: 12/03/2020 9:58 PM Workstation Name: [id number]
--- NOTE | 2020-12-03 22:02 | Cat Scan Report ---
CT angio head HISTORY: Altered Mental Status COMPARISON: None. TECHNIQUE: CTA of the head is performed after IV contrast. 3-D/MIP reformats were postprocessed. Per centage stenosis is determined by direct quantitative measurements of diseased internal carotid arter y diameter compared with normal distal internal carotid artery reference segments or by criteria ruslan lar to NASCET where applicable. All CT scans at this location are performed using CT dose reduction f or ALARA by means of automated exposure control. FINDINGS: CTA HEAD: Intracranial internal carotid arteries: No occlusion or significant stenosis. Anterior cerebral arteries: No occlusion or significant stenosis. Middle cerebral arteries: No occlusion or significant stenosis. Intracranial vertebral arteries: No occlusion or significant stenosis. Basilar artery: No occlusion or significant stenosis. Posterior cerebral arteries: No occlusion or significant stenosis. No aneurysm. Additional findings: None. IMPRESSION: 1. CTA HEAD: No occlusion or significant stenosis of the major intracranial vasculature. Signer Name: Jose Lau MD Signed: 12/03/2020 9:57 PM Workstation Name: [id number]
[2020-12-03] MEDS ORDERED: METOCLOPRAMIDE 10 MG/2 ML INJ IV ONE (22:23)
[2020-12-03] MEDS ORDERED: ONDANSETRON 4 MG/2 ML INJ IV PRN (23:36)
[2020-12-03] MEDS ORDERED: SENNOSIDES 8.6 MG TAB PO PRN (23:36)
[2020-12-03] MEDS ORDERED: ACETAMINOPHEN 325 MG TAB PO PRN (23:36)
[2020-12-03] MEDS ORDERED: METOCLOPRAMIDE 10 MG/2 ML INJ IV PRN (23:36)
[2020-12-03] MEDS ORDERED: MAGNESIUM HYDROXIDE (MOM) ORAL LIQD UDC PO PRN (23:36)
[2020-12-03] MEDS ORDERED: ALUM-MAG HYDROXIDE-SIMETHICONE 200-200-20MG/5ML ORAL LIQD 30 ML PO PRN (23:36)
--- NOTE | 2020-12-03 23:43 | History and Physical Report ---
History of Present Illness Date of examination: 12/03/20 Date of admission: 12/03/20 23:10 Chief complaint: AMS History of present illness: The patient is a 45-year-old gentleman. His past history includes heart disease, stent, status post STEMI, also with a history of presumed syphilis, who is brought to the hospital by emergency medical services and law enforcement custody. Additional past history includes chronic anemia, mild hyponatremia, dyslipidemia. The patient is currently not answering any questions. History obtained by accompanying railroad police. The railroad police reports that the patient was pulled over and was arrested for presumed methamphetamine intoxication. The railroad police stated that in the field, the patient ambulated with a steady gait, not endorse any medical complaints. The railroad police then stated that once the patient got into the back of the police car, he became unresponsive. ED work-up shows WBC 5.4 and 9.7 hemoglobin 14.4, platelets 225 serum glucose 110, sodium 137, potassium is 3.8 creatinine 1.0 THS 0.055. CTA of the neck and head negative for acute finding. CT of the head negative. Chest x-ray negativ e. Patient seen in the ED. Patient appears confused unable to answer questions appropriately. Per patient record patient came with altered mental status. Reviewed lab work patient has a low TSH. Patient was given steroid in the ED for hyperthyroidism. Past History Past Medical History: hyperlipidemia Past Surgical History: No surgical history (unable to assess -pt is confused) Social history: no significant social history Medications and Allergies Allergies Allergy/AdvReac Type Severity Reaction Status Date / Time No Known Allergies Allergy Verified 03/07/17 04:37 Home Medications Medication Instructions Recorded Confirmed Last Taken Type Acyclovir [Zovirax Cap] 200 mg PO 5XD #25 cap 03/07/17 Unknown Rx Benzocaine/Menthol [Cepacol Sore 1 each MM Q4H PRN #1 box 03/07/17 Unknown Rx Throat Lozenge] Naproxen [Naprosyn TAB] 500 mg PO BID PRN #20 tablet 03/07/17 Unknown Rx Aspirin EC [Halfprin EC] 81 mg PO QDAY #30 tablet. 08/10/17 Unknown Rx AtorvaSTATin [Lipitor] 80 mg PO QHS #30 tablet 08/10/17 Unknown Rx Clopidogrel [Plavix] 75 mg PO QDAY #30 tablet 08/10/17 Unknown Rx Lisinopril [Zestril TAB] 2.5 mg PO QDAY #30 tab 08/10/17 Unknown Rx Pantoprazole [Protonix TAB] 40 mg PO QDAY #14 tablet 08/10/17 Unknown Rx carvediloL [Coreg] 3.125 mg PO BID #60 tablet 08/10/17 Unknown Rx Amoxicillin [Trimox CAP] 500 mg PO Q8H #30 capsule 02/09/20 Unknown Rx Ibuprofen [Motrin] 600 mg PO Q8H PRN #30 tablet 02/09/20 Unknown Rx traMADoL [Ultram] 50 mg PO Q6HR PRN #12 tablet 02/09/20 Unknown Rx Active Meds: Active Medications Acetaminophen (Acetaminophen 325 Mg Tab) 650 mg PO Q4H PRN PRN Reason: Pain MILD(1-3)/Fever >100.5/MARQUEZ Al Hydrox/Mg Hydrox/Simethicone (Alum-Mag Hydroxide-Simethicone [id number]/5ml Oral Liqd 30 Ml) 30 ml PO Q4H PRN PRN Reason: Indigestion Famotidine (Famotidine 20 Mg/2 Ml Inj) 20 mg IV BID LOURDES Magnesium Hydroxide (Magnesium Hydroxide (Mom) Oral Liqd Udc) 30 ml PO Q4H PRN PRN Reason: Constipation Metoclopramide HCl (Metoclopramide 10 Mg/2 Ml Inj) 10 mg IV Q6H PRN PRN Reason: Nausea And Vomiting Ondansetron HCl (Ondansetron 4 Mg/2 Ml Inj) 4 mg IV Q8H PRN PRN Reason: Nausea And Vomiting Senna (Sennosides 8.6 Mg Tab) 8.6 mg PO Q12HR PRN PRN Reason: Constipation Sodium Chloride (Sodium Chloride 0.9% 10 Ml Flush Syringe) 10 ml IV BID LOURDES Sodium Chloride (Sodium Chloride 0.9% 10 Ml Flush Syringe) 10 ml IV PRN PRN PRN Reason: LINE FLUSH Review of Systems Constitutional: weakness Ears, nose, mouth and throat: no epistaxis, no bleeding gums Cardiovascular: no leg edema Respiratory: no wheezing Gastrointestinal: no melena Integumentary: no rash, no pruritis Neurological: weakness Psychiatric: disorientation, confusion Hematologic/Lymphatic: no easy bruising, no easy bleeding Allergic/Immunologic: no urticaria Exam - Constitutional Vitals: Temp Pulse Resp BP Pulse Ox 98.0 F 105 H 15 139/103 100 12/03/20 18:13 12/03/20 21:16 12/03/20 21:16 12/03/20 23:00 12/03/20 23:00 General appearance: Present: mild distress, other (frail appearing pt) - EENT Eyes: Present: PERRL ENT: hearing intact, clear oral mucosa - Neck Neck: Present: supple, normal ROM - Respiratory Respiratory effort: normal Respiratory: bilateral: CTA - Cardiovascular Heart Sounds: Present: S1 & S2. Absent: rub, click - Extremities Extremities: pulses symmetrical, No edema Peripheral Pulses: within normal limits - Abdominal General gastrointestinal: Present: soft, non-tender, non-distended, normal bowel sounds Male genitourinary: Present: normal - Integumentary Integumentary: Present: clear, warm, dry - Musculoskeletal Musculoskeletal: gait normal, strength equal bilaterally - Psychiatric Psychiatric: appropriate mood/affect, intact judgment & insight - Neurologic Neurologic: CNII-XII intact, moves all extremities - Allied Health Allied health notes reviewed: nursing, PT HEART Score - HEART Score Troponin: Troponin T < 0.010 ng/mL (0.00-0.029) 12/03/20 18:47 Results - Labs CBC & Chem 7: 12/04/20 06:33 12/04/20 06:33 Labs: Abnormal lab results 12/03/20 12/03/20 12/03/20 Range/Units 17:56 17:56 17:56 RBC (3.65-5.03) M/mm3 [place] % (Auto) (0.0-7.3) % Baso % (Auto) (0.0-1.8) % Glucose 110 H (75-100) mg/dL Total Creatine Kinase 369 H (55-170) units/L TSH (0.270-4.200) mlU/mL Salicylates (2.8-20.0) mg/dL Acetaminophen 5.0 L (10.0-30.0) ug/mL 12/03/20 12/03/20 12/03/20 Range/Units 17:56 17:56 17:56 RBC 5.17 H (3.65-5.03) M/mm3 [place] % (Auto) 7.4 H (0.0-7.3) % Baso % (Auto) 2.0 H (0.0-1.8) % Glucose (75-100) mg/dL Total Creatine Kinase (55-170) units/L TSH 0.055 L (0.270-4.200) mlU/mL Salicylates < 0.3 L (2.8-20.0) mg/dL Acetaminophen (10.0-30.0) ug/mL Assessment and Plan - Patient Problems (1) Acute encephalopathy Current Visit: Yes Status: Acute Plan to address problem: ? cause-CTA of the neck and head-no acute finding CT of the head-negative Chest [id number] for acute finding (2) Thyrotoxicosis Current Visit: Yes Status: Acute Plan to address problem: Lab work showed low TSH patient was given steroid in ED at admission Start methimazole and propronolol (3) DVT prophylaxis Current Visit: Yes Status: Acute Plan to address problem: lovenox (4) Full code status Current Visit: Yes Status: Acute Plan to address problem: full code
[2020-12-04] MEDS: PROPRANOLOL 10 MG TAB PO SCH ×3 (05:08→21:53)
[2020-12-04 06:48] LABS: Basophils # (Auto) 0.1 K/mm3 (0.0-0.1); Basophils % (Auto) 0.6 % (0.0-1.8); Eosinophils % (Auto) 0.3 % (0.0-4.3); Hemoglobin 15.4 gm/dl (11.8-15.2); Lymphocytes # (Auto) 2.1 K/mm3 (1.2-5.4); Lymphocytes % (Auto) 21.8 % (13.4-35.0); Mean Corpuscular HGB Conc 34 % (32-34); Mean Corpuscular Volume 84 fl (84-94); Monocytes # (Auto) 0.7 K/mm3 (0.0-0.8); Monocytes % (Auto) 7.3 % (0.0-7.3); Platelet Count 232 K/mm3 (140-440); Red Blood Count 5.47 M/mm3 (3.65-5.03)
[2020-12-04 07:03] LABS: Alanine Aminotransferase 14 units/L (7-56); Albumin 3.9 g/dL (3.9-5); BUN/Creatinine Ratio 21; Blood Urea Nitrogen 17 mg/dL (9-20); Calcium 8.9 mg/dL (8.4-10.2); Hemolysis Index 4
--- NOTE | 2020-12-04 08:25 | Progress Note ---
Assessment and Plan Assessment and plan: - Patient Problems -- Acute metabolic encephalopathy Current Visit: Yes Status: Acute -CTA of the neck and head-no acute abnormality CT of the head-negative Chest [id number] for acute finding Continue neuro work-up, neurology consult if needed --H/O coronary artery disease status post PCI; Continue current cardiac medications Dual antiplatelet therapy, beta-blockers, MACARENA inhibitors Statins, cardiac diet Closely monitor, cardiology evaluation if needed -- Thyrotoxicosis Lab work showed low TSH, free T4 normal range. patient was given steroid in ED at admission Continue methimazole and propronolol --Obesity; BMI 34.0 Patient needs weight reduction when medically stable Diet modification, exercise as tolerated and weight reduction Lifestyle changes when medically stable --Dyslipidemia; Continue statin, low-cholesterol diet, exercise as tolerated and weight reduction -- DVT prophylaxis Current Visit: Yes Status: Acute . Subcu lovenox --Full code status Current Visit: Yes Status: Acute full code We will closely monitor the patient and adjust management as needed Plan of care reviewed with the patient and his nurse History Interval history: I have seen and examined the patient at the bedside this morning patient's chart and medications reviewed Patient is more alert and awake, not in acute distress Vital signs noted Hospitalist Physical - Constitutional Vitals: Temp Pulse Resp BP Pulse Ox 98.0 F 109 H 22 139/103 100 12/03/20 18:13 12/03/20 23:30 12/03/20 23:30 12/03/20 23:50 12/03/20 23:50 General appearance: Present: mild distress, well-nourished, obese, other (frail appearing pt) - EENT Eyes: Present: PERRL, EOM intact - Neck Neck: Present: supple, normal ROM - Respiratory Respiratory effort: normal, labored Respiratory: bilateral: diminished, rales, negative: rhonchi, wheezing - Cardiovascular Rhythm: regular Heart Sounds: Present: S1 & S2 - Extremities Extremities: no ischemia, No edema - Abdominal General gastrointestinal: soft, non-tender, non-distended, normal bowel sounds - Integumentary Integumentary: Present: clear, warm - Psychiatric Psychiatric: appropriate mood/affect, cooperative - Neurologic Neurologic: CNII-XII intact, moves all extremities HEART Score - HEART Score Troponin: Troponin T < 0.010 ng/mL (0.00-0.029) 12/03/20 18:47 Results - Labs CBC & Chem 7: 12/04/20 06:33 12/04/20 06:33 Labs: Laboratory Last Values WBC 9.7 K/mm3 (4.5-11.0) 12/04/20 06:33 RBC 5.47 M/mm3 (3.65-5.03) H 12/04/20 06:33 Hgb 15.4 gm/dl (11.8-15.2) H 12/04/20 06:33 Hct 46.0 % (35.5-45.6) H 12/04/20 06:33 MCV 84 fl (84-94) 12/04/20 06:33 MCH 28 pg (28-32) 12/04/20 06:33 MCHC 34 % (32-34) 12/04/20 06:33 RDW 14.0 % (13.2-15.2) 12/04/20 06:33 Plt Count 232 K/mm3 (140-440) 12/04/20 06:33 Lymph % (Auto) 21.8 % (13.4-35.0) 12/04/20 06:33 [place] % (Auto) 7.3 % (0.0-7.3) 12/04/20 06:33 Eos % (Auto) 0.3 % (0.0-4.3) 12/04/20 06:33 Baso % (Auto) 0.6 % (0.0-1.8) 12/04/20 06:33 Lymph # (Auto) 2.1 K/mm3 (1.2-5.4) 12/04/20 06:33 [place] # (Auto) 0.7 K/mm3 (0.0-0.8) 12/04/20 06:33 Eos # (Auto) 0.0 K/mm3 (0.0-0.4) 12/04/20 06:33 Baso # (Auto) 0.1 K/mm3 (0.0-0.1) 12/04/20 06:33 Seg Neutrophils % 70.0 % (40.0-70.0) 12/04/20 06:33 Seg Neutrophils # 6.8 K/mm3 (1.8-7.7) 12/04/20 06:33 APTT 25.3 Sec. (24.2-36.6) 12/03/20 17:56 Sodium 137 mmol/L (137-145) 12/04/20 06:33 Potassium 4.4 mmol/L (3.6-5.0) 12/04/20 06:33 Chloride 103.7 mmol/L (98-107) 12/04/20 06:33 Carbon Dioxide 23 mmol/L (22-30) 12/04/20 06:33 Anion Gap 15 mmol/L 12/04/20 06:33 BUN 17 mg/dL (9-20) 12/04/20 06:33 Creatinine 0.8 mg/dL (0.8-1.3) 12/04/20 06:33 Estimated GFR > 60 ml/min 12/04/20 06:33 BUN/Creatinine Ratio 21 % 12/04/20 06:33 Glucose 112 mg/dL (75-100) H 12/04/20 06:33 POC Glucose 97 mg/dL (70-105) 12/03/20 20:55 Lactic Acid 1.30 mmol/L (0.7-2.0) 12/03/20 19:21 Calcium 8.9 mg/dL (8.4-10.2) 12/04/20 06:33 Magnesium 2.20 mg/dL (1.7-2.3) 12/03/20 17:56 Total Bilirubin 2.70 mg/dL (0.1-1.2) H 12/04/20 06:33 AST 22 units/L (5-40) 12/04/20 06:33 ALT 14 units/L (7-56) 12/04/20 06:33 Alkaline Phosphatase 101 units/L (35-129) 12/04/20 06:33 Ammonia 43.0 umol/L (25-60) 12/03/20 17:56 Total Creatine Kinase 369 units/L (55-170) H 12/03/20 17:56 Troponin T < 0.010 ng/mL (0.00-0.029) 12/03/20 18:47 Total Protein 7.0 g/dL (6.3-8.2) 12/04/20 06:33 Albumin 3.9 g/dL (3.9-5) 12/04/20 06:33 Albumin/Globulin Ratio 1.3 % 12/04/20 06:33 TSH 0.055 mlU/mL (0.270-4.200) L 12/03/20 17:56 Free T4 1.39 ng/dL (0.76-1.46) 12/03/20 19:21 Urine Color Yellow (Yellow) 12/03/20 20:08 Urine Turbidity Clear (Clear) 12/03/20 20:08 Urine pH 5.0 (5.0-7.0) 12/03/20 20:08 Ur Specific [place] 1.024 (1.003-1.030) 12/03/20 20:08 Urine Protein <15 mg/dl mg/dL (Negative) 12/03/20 20:08 Urine Glucose (UA) Neg mg/dL (Negative) 12/03/20 20:08 Urine Ketones Neg mg/dL (Negative) 12/03/20 20:08 Urine Blood Neg (Negative) 12/03/20 20:08 Urine Nitrite Neg (Negative) 12/03/20 20:08 Urine Bilirubin Neg (Negative) 12/03/20 20:08 Urine Urobilinogen < 2.0 mg/dL (<2.0) 12/03/20 20:08 Ur Leukocyte Esterase Neg (Negative) 12/03/20 20:08 Urine WBC (Auto) 1.0 /HPF (0.0-6.0) 12/03/20 20:08 Urine RBC (Auto) 2.0 /HPF (0.0-6.0) 12/03/20 20:08 Urine Mucus Few /HPF 12/03/20 20:08 Salicylates < 0.3 mg/dL (2.8-20.0) L 12/03/20 17:56 Acetaminophen 5.0 ug/mL (10.0-30.0) L 12/03/20 17:56 Plasma/Serum Alcohol < 0.01 % (0-0.07) 12/03/20 17:56 Microbiology: Microbiology 12/03/20 19:21 Peripheral/Venous Blood Culture - Preliminary Culture in Progress 12/03/20 19:36 Peripheral/Venous Blood Culture - Preliminary Culture in Progress Araujo/IV: Voiding Method Urinal Active Medications - Current Medications Current Medications: Generic Name Dose Route Start Last Admin Trade Name Freq PRN Reason Stop Dose Admin Acetaminophen 650 mg 12/03/20 23:36 Acetaminophen 325 Mg Tab PO Q4H PRN Pain MILD(1-3)/Fever >100.5/MARQUEZ Al Hydrox/Mg Hydrox/Simethicone 30 ml 12/03/20 23:36 Alum-Mag Hydroxide-Simethicone [id number]/5ml Oral Liqd 30 Ml PO Q4H PRN Indigestion Famotidine 20 mg 12/04/20 10:00 Famotidine 20 Mg/2 Ml Inj IV BID LOURDES Magnesium Hydroxide 30 ml 12/03/20 23:36 Magnesium Hydroxide (Mom) Oral Liqd Udc PO Q4H PRN Constipation Methimazole 20 mg 12/04/20 10:00 Methimazole 5 Mg Tab PO Q24HR [facility] Metoclopramide HCl 10 mg 12/03/20 23:36 Metoclopramide 10 Mg/2 Ml Inj IV Q6H PRN Nausea And Vomiting Ondansetron HCl 4 mg 12/03/20 23:36 Ondansetron 4 Mg/2 Ml Inj IV Q8H PRN Nausea And Vomiting Propranolol HCl 10 mg 12/04/20 03:00 12/04/20 05:08 Propranolol 10 Mg Tab PO Not Given Q12HR LOURDES Senna 8.6 mg 12/03/20 23:36 Sennosides 8.6 Mg Tab PO Q12HR PRN Constipation Sodium Chloride 10 ml 12/04/20 10:00 Sodium Chloride 0.9% 10 Ml Flush Syringe IV BID LOURDES Sodium Chloride 10 ml 12/03/20 23:36 Sodium Chloride 0.9% 10 Ml Flush Syringe IV PRN PRN LINE FLUSH
[2020-12-04] MEDS ORDERED: FAMOTIDINE 20 MG/2 ML INJ IV SCH (10:00)
--- NOTE | 2020-12-04 11:17 | Electrocardiograph Report ---
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
--- NOTE | 2020-12-04 11:17 | Electrocardiograph Report ---
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
[2020-12-04] MEDS: methIMAzole 5 MG TAB PO SCH (11:40)
[2020-12-04] MEDS: FAMOTIDINE 20 MG TAB PO SCH ×2 (11:40→21:53)
--- NOTE | 2020-12-04 16:57 | Event Note ---
Date: 12/04/20 Unable to assess patient today due to drowsiness. Will follow.
[2020-12-05] MEDS: PROPRANOLOL 10 MG TAB PO SCH (09:03)
[2020-12-05] MEDS: methIMAzole 5 MG TAB PO SCH (09:03)
[2020-12-05] MEDS: FAMOTIDINE 20 MG TAB PO SCH (09:03)
--- NOTE | 2020-12-05 09:49 | Progress Note ---
Assessment and Plan Assessment and plan: -- Acute metabolic encephalopathy Current Visit: Yes Status: Acute -CTA of the neck and head-no acute abnormality CT of the head-negative Chest [id number] for acute finding Continue neuro work-up, neurology consult if needed --H/O coronary artery disease status post PCI; Continue current cardiac medications Dual antiplatelet therapy, beta-blockers, MACARENA inhibitors Statins, cardiac diet Closely monitor, cardiology evaluation if needed -- Thyrotoxicosis Lab work showed low TSH, free T4 normal range. patient was given steroid in ED at admission Continue methimazole and propronolol --Obesity; BMI 34.0 Patient needs weight reduction when medically stable Diet modification, exercise as tolerated and weight reduction Lifestyle changes when medically stable --Dyslipidemia; Continue statin, low-cholesterol diet, exercise as tolerated and weight reduction -- DVT prophylaxis Current Visit: Yes Status: Acute . Subcu lovenox --Full code status Current Visit: Yes Status: Acute full code We will closely monitor the patient and adjust management as needed Plan of care reviewed with the patient and his nurse Hospitalist Physical - Constitutional Vitals: Temp Pulse Resp BP Pulse Ox 99.0 F 102 H 18 117/78 97 12/04/20 16:34 12/05/20 09:03 12/04/20 21:52 12/05/20 09:03 12/04/20 21:52 General appearance: Present: mild distress, well-nourished, obese, other (frail appearing pt) HEART Score - HEART Score Troponin: Troponin T < 0.010 ng/mL (0.00-0.029) 12/03/20 18:47 Results - Labs CBC & Chem 7: 12/04/20 06:33 12/04/20 06:33 Labs: Laboratory Last Values WBC 9.7 K/mm3 (4.5-11.0) 12/04/20 06:33 RBC 5.47 M/mm3 (3.65-5.03) H 12/04/20 06:33 Hgb 15.4 gm/dl (11.8-15.2) H 12/04/20 06:33 Hct 46.0 % (35.5-45.6) H 12/04/20 06:33 MCV 84 fl (84-94) 12/04/20 06:33 MCH 28 pg (28-32) 12/04/20 06:33 MCHC 34 % (32-34) 12/04/20 06:33 RDW 14.0 % (13.2-15.2) 12/04/20 06:33 Plt Count 232 K/mm3 (140-440) 12/04/20 06:33 Lymph % (Auto) 21.8 % (13.4-35.0) 12/04/20 06:33 [place] % (Auto) 7.3 % (0.0-7.3) 12/04/20 06:33 Eos % (Auto) 0.3 % (0.0-4.3) 12/04/20 06:33 Baso % (Auto) 0.6 % (0.0-1.8) 12/04/20 06:33 Lymph # (Auto) 2.1 K/mm3 (1.2-5.4) 12/04/20 06:33 [place] # (Auto) 0.7 K/mm3 (0.0-0.8) 12/04/20 06:33 Eos # (Auto) 0.0 K/mm3 (0.0-0.4) 12/04/20 06:33 Baso # (Auto) 0.1 K/mm3 (0.0-0.1) 12/04/20 06:33 Seg Neutrophils % 70.0 % (40.0-70.0) 12/04/20 06:33 Seg Neutrophils # 6.8 K/mm3 (1.8-7.7) 12/04/20 06:33 APTT 25.3 Sec. (24.2-36.6) 12/03/20 17:56 Sodium 137 mmol/L (137-145) 12/04/20 06:33 Potassium 4.4 mmol/L (3.6-5.0) 12/04/20 06:33 Chloride 103.7 mmol/L (98-107) 12/04/20 06:33 Carbon Dioxide 23 mmol/L (22-30) 12/04/20 06:33 Anion Gap 15 mmol/L 12/04/20 06:33 BUN 17 mg/dL (9-20) 12/04/20 06:33 Creatinine 0.8 mg/dL (0.8-1.3) 12/04/20 06:33 Estimated GFR > 60 ml/min 12/04/20 06:33 BUN/Creatinine Ratio 21 % 12/04/20 06:33 Glucose 112 mg/dL (75-100) H 12/04/20 06:33 POC Glucose 94 mg/dL (70-105) 12/04/20 08:31 Lactic Acid 1.30 mmol/L (0.7-2.0) 12/03/20 19:21 Calcium 8.9 mg/dL (8.4-10.2) 12/04/20 06:33 Magnesium 2.20 mg/dL (1.7-2.3) 12/03/20 17:56 Total Bilirubin 2.70 mg/dL (0.1-1.2) H 12/04/20 06:33 AST 22 units/L (5-40) 12/04/20 06:33 ALT 14 units/L (7-56) 12/04/20 06:33 Alkaline Phosphatase 101 units/L (35-129) 12/04/20 06:33 Ammonia 43.0 umol/L (25-60) 12/03/20 17:56 Total Creatine Kinase 369 units/L (55-170) H 12/03/20 17:56 Troponin T < 0.010 ng/mL (0.00-0.029) 12/03/20 18:47 Total Protein 7.0 g/dL (6.3-8.2) 12/04/20 06:33 Albumin 3.9 g/dL (3.9-5) 12/04/20 06:33 Albumin/Globulin Ratio 1.3 % 12/04/20 06:33 TSH 0.055 mlU/mL (0.270-4.200) L 12/03/20 17:56 Free T4 1.39 ng/dL (0.76-1.46) 12/03/20 19:21 Urine Color Yellow (Yellow) 12/03/20 20:08 Urine Turbidity Clear (Clear) 12/03/20 20:08 Urine pH 5.0 (5.0-7.0) 12/03/20 20:08 Ur Specific [place] 1.024 (1.003-1.030) 12/03/20 20:08 Urine Protein <15 mg/dl mg/dL (Negative) 12/03/20 20:08 Urine Glucose (UA) Neg mg/dL (Negative) 12/03/20 20:08 Urine Ketones Neg mg/dL (Negative) 12/03/20 20:08 Urine Blood Neg (Negative) 12/03/20 20:08 Urine Nitrite Neg (Negative) 12/03/20 20:08 Urine Bilirubin Neg (Negative) 12/03/20 20:08 Urine Urobilinogen < 2.0 mg/dL (<2.0) 12/03/20 20:08 Ur Leukocyte Esterase Neg (Negative) 12/03/20 20:08 Urine WBC (Auto) 1.0 /HPF (0.0-6.0) 12/03/20 20:08 Urine RBC (Auto) 2.0 /HPF (0.0-6.0) 12/03/20 20:08 Urine Mucus Few /HPF 12/03/20 20:08 Salicylates < 0.3 mg/dL (2.8-20.0) L 12/03/20 17:56 Acetaminophen 5.0 ug/mL (10.0-30.0) L 12/03/20 17:56 Plasma/Serum Alcohol < 0.01 % (0-0.07) 12/03/20 17:56 Microbiology: Microbiology 12/03/20 19:21 Peripheral/Venous Blood Culture - Preliminary NO GROWTH AFTER 24 HOURS 12/03/20 19:36 Peripheral/Venous Blood Culture - Preliminary NO GROWTH AFTER 24 HOURS Araujo/IV: Voiding Method Urinal Active Medications - Current Medications Current Medications: Generic Name Dose Route Start Last Admin Trade Name Freq PRN Reason Stop Dose Admin Acetaminophen 650 mg 12/03/20 23:36 Acetaminophen 325 Mg Tab PO Q4H PRN Pain MILD(1-3)/Fever >100.5/MARQUEZ Al Hydrox/Mg Hydrox/Simethicone 30 ml 12/03/20 23:36 Alum-Mag Hydroxide-Simethicone [id number]/5ml Oral Liqd 30 Ml PO Q4H PRN Indigestion Famotidine 20 mg 12/04/20 10:00 12/05/20 09:03 Famotidine 20 Mg Tab PO 20 mg BID LOURDES Administration Magnesium Hydroxide 30 ml 12/03/20 23:36 Magnesium Hydroxide (Mom) Oral Liqd Udc PO Q4H PRN Constipation Methimazole 20 mg 12/04/20 10:00 12/05/20 09:03 Methimazole 5 Mg Tab PO 20 mg Q24HR LOURDES Administration Metoclopramide HCl 10 mg 12/03/20 23:36 Metoclopramide 10 Mg/2 Ml Inj IV Q6H PRN Nausea And Vomiting Ondansetron HCl 4 mg 12/03/20 23:36 Ondansetron 4 Mg/2 Ml Inj IV Q8H PRN Nausea And Vomiting Propranolol HCl 10 mg 12/04/20 03:00 12/05/20 09:03 Propranolol 10 Mg Tab PO 10 mg Q12HR LOURDES Administration Senna 8.6 mg 12/03/20 23:36 Sennosides 8.6 Mg Tab PO Q12HR PRN Constipation Sodium Chloride 10 ml 12/04/20 10:00 12/05/20 09:04 Sodium Chloride 0.9% 10 Ml Flush Syringe IV 10 ml BID LOURDES Administration Sodium Chloride 10 ml 12/03/20 23:36 Sodium Chloride 0.9% 10 Ml Flush Syringe IV PRN PRN LINE FLUSH Nutrition/Malnutrition Assess - Dietary Evaluation Nutrition/Malnutrition Findings: Nutrition Notes Start: 12/04/20 11:02 Freq: Status: Active Protocol: Document 12/04/20 11:02 (Rec: 12/04/20 11:10 [id number]) Nutrition Notes Need for Assessment generated from: endorsement clerk,MST Initial or Follow up Assessment Other Pertinent Diagnosis thyrotoxicosis, encephalopathy , hx STEMI Current Diet Regular Labs/Tests T bili 2.7 Pertinent Medications Reviewed Height 5 ft 4 in Weight 89.881 kg [place] Body Weight (kg) 59.09 BMI 34.0 Intake Prior to Admission Poor Weight Status Obese Subjective/Other Information RN screen for MST. Pt states the last weight he remembers was 140-135#. Pt does not appear as wt documented in chart. Pt reports the loss of his dad in Jun. has made it difficult for him to eat well and take care of himself. He states he is depressed and uses drugs which makes him eat less. Pt ate 80% of breakfast and stated he will finish it. Burn Absent Trauma Absent GI Symptoms None Current % PO Good (75-100%) Minimum of two criteria Yes Energy Intake (non-severe) <75% Estimated Energy Requirement >7 days Muscle Mass Mild Depletion (non-severe) #1 Nutrition Diagnosis Malnutrition Etiology depression, drug use As Evidenced by Signs and Symptoms <75% of EER in > or = to 7 days, mild muscle wasting Is patient on ventilator? No Is Patient Ambulatory and/or Out of Bed No REE-([facility]-confined to bed) 2030.108 Kcal/Kg value to use for calculation 19 Approximate Energy Requirements Using 1708 kcal/Kg Calculation Used for Recommendations Kcal/kg Additional Notes Protein: (1.2-1.5g/kg AdjBW: 74kg) 89-111g Fluid: 1ml/kcal Nutrition Intervention Change Diet Order: Continue with double protein portions Add Supplement/Snack (indicate name/kcal Ensure Enlive daily /protein ) Provides kCal: 350 Provides Protein (gm) 20 Goal #1 Meet at least 75% of protein and energy needs via PO and ONS tolerance Anticipated Discharge Needs: Regular Follow-Up By: 12/06/20 Additional Comments FU for intakes, ONS tolernace and weight
--- NOTE | 2020-12-05 10:05 | Discharge Summary ---
Providers - Providers Date of Admission: 12/04/20 14:51 Date of discharge: 12/05/20 Attending physician: JONN KOLB 12/04/20 09:57 Consult to Mental Health [CONS] Urgent Reason For Exam: psych Primary care physician: [employer] Hospitalization Reason for admission: Altered mental status/acute metabolic encephalopathy Condition: Fair Pertinent studies: -CTA of the neck and head-no acute abnormality CT of the head-negative Chest [id number]-alk-[id number] for acute finding Hospital course: The patient is a 45-year-old gentleman. His past history includes heart disease, stent, status post STEMI, also with a history of presumed syphilis, who is brought to the hospital by emergency medical services and law enforcement custody. Additional past history includes chronic anemia, mild hyponatremia, dyslipidemia. The patient is currently not answering any questions. History obtained by accompanying chief revenue officer. The chief revenue officer reports that the patient was pulled over and was arrested for presumed methamphetamine intoxication. The chief revenue officer stated that in the field, the patient ambulated with a steady gait, not endorse any medical complaints. The chief revenue officer then stated that once the patient got into the back of the police car, he became unresponsive. ED work-up shows WBC 5.4 and 9.7 hemoglobin 14.4, platelets 225 serum glucose 110, sodium 137, potassium is 3.8 creatinine 1.0 THS 0.055. CTA of the neck and head negative for acute finding. CT of the head negative. Chest x-ray negative. Patient seen in the ED. Patient appears confused unable to answer questions appropriately. Per patient record patient came with altered mental status. Reviewed lab work patient has a low TSH. Patient was given steroid in the ED for hyperthyroidism. Patient was admitted to the hospital appropriately managed, symptoms slowly but gradually improved Today patient is comfortable no new complaints vital signs stable Patient is ambulatory and tolerating Stable at discharge Discharge diagnosis: -- Acute metabolic encephalopathy Current Visit: Yes Status: Acute -CTA of the neck and head-no acute abnormality CT of the head-negative Chest [id number]-[id number] for acute finding Continue neuro work-up, neurology consult if needed --H/O coronary artery disease status post PCI; Continue current cardiac medications Dual antiplatelet therapy, beta-blockers, MACARENA inhibitors Statins, cardiac diet Closely monitor, cardiology evaluation if needed -- Thyrotoxicosis Lab work showed low TSH, free T4 normal range. patient was given steroid in ED at admission Continue methimazole and propronolol --Obesity; BMI 34.0 Patient needs weight reduction when medically stable Diet modification, exercise as tolerated and weight reduction Lifestyle changes when medically stable --Dyslipidemia; Continue statin, low-cholesterol diet, exercise as tolerated and weight reduction -- DVT prophylaxis Current Visit: Yes Status: Acute . Subcu lovenox --Full code status Current Visit: Yes Status: Acute full code Patient is stable at discharge Disposition: DC-01 TO HOME OR SELFCARE Final Discharge Diagnosis (Prints w/discharge instructions): Acute metabolic encephalopathy. Coronary artery disease s/p PCI. Thyrotoxicosis. Obesity BMI 34.0. Dyslipidemia Time spent for discharge: 35 min Core Measure Documentation - Palliative Care Palliative Care/ Comfort Measures: Not Applicable - Core Measures Any of the following diagnoses?: none Exam - Constitutional Vitals: Temp Pulse Resp BP Pulse Ox 99.0 F 102 H 18 117/78 97 12/04/20 16:34 12/05/20 09:03 12/04/20 21:52 12/05/20 09:03 12/04/20 21:52 General appearance: Present: no acute distress, well-nourished - EENT Eyes: Present: PERRL, EOM intact - Neck Neck: Present: supple, normal ROM - Respiratory Respiratory effort: normal Respiratory: bilateral: diminished, negative: rales, rhonchi, wheezing - Cardiovascular Rhythm: regular Heart Sounds: Present: S1 & S2 - Extremities Extremities: no ischemia, No edema - Abdominal General gastrointestinal: Present: soft, non-tender, non-distended, normal bowel sounds - Integumentary Integumentary: Present: clear, warm - Musculoskeletal Musculoskeletal: strength equal bilaterally - Psychiatric Psychiatric: appropriate mood/affect - Neurologic Neurologic: CNII-XII intact, moves all extremities Plan Activity: advance as tolerated Diet: regular Additional Instructions: Advised to follow primary care physician in 1 week. Advised to quit alcohol intake. If you have worsening symptoms contact MD or go to emergency room. Advised to [facility] health Follow up with: FARAZ ESPAÑA MD [Primary Care Provider] - 3-5 Days EMMA COOPER MD [Staff Physician] - 7 Days Prescriptions: carvediloL [Coreg] 3.125 mg PO BID #60 tablet propranoloL [Inderal] 10 mg PO BID #60 tablet AtorvaSTATin [Lipitor] 80 mg PO QHS #30 tablet Clopidogrel [Plavix] 75 mg PO QDAY #30 tablet Pantoprazole [Protonix TAB] 40 mg PO QDAY #14 tablet Methimazole [Tapazole] 10 mg PO Q8H #60 tablet traMADoL [Ultram 50 MG tab] 50 mg PO Q6HR PRN #12 tablet PRN Reason: Pain Lisinopril [Zestril TAB] 2.5 mg PO QDAY #30 tab
[2020-12-05 12:30] VITALS: BP 106/71
== END 2020-12-05 14:45 | disposition home or self-care (01) | DRG 71 ==
LOC: ED 17:29 → 3A 23:10 → OBSVTOIN 12-04 14:51
PROVIDERS: ADMIT Hospitalist; ATTEND Internal Medicine
DX: G93.41 Metabolic encephalopathy (principal); E87.1 Hypo-osmolality and hyponatremia; E05.90 Thyrotoxicosis, unspecified without thyrotoxic crisis or storm; D64.9 Anemia, unspecified; E78.5 Hyperlipidemia, unspecified; E66.9 Obesity, unspecified; Z95.5 Presence of coronary angioplasty implant and graft; I25.2 Old myocardial infarction; Z68.34 Body mass index [BMI] 34.0-34.9, adult
CPT/HCPCS: 36415; 70450; 70496; 70498; 71045; 80053; 80320; 81001; 82140; 82533; 82550; 82962; 83735; 84439; 84443; 84481; 84484; 85014; 85018; 85025; 85049; 85730; 87040; 87086; 93005; 96361; 96374; 96375; G0378; G0480; J1720; J2405; J2765; J7040; Q9967